=== PATIENT | female | born 1965 | race Caucasian/White ===

== ENCOUNTER → 2016-09-21 | Outpatient (CLI) | payer OTHER ==
[~2016-09-21] MED LIST: ACT30 PO; ASPCH81X PO; CYAN100020 PO; GLIP-199 PO; INSUINJ SC; LISI-461 PO; METF-384 PO; MULT-506 PO; SIMV80TA2 PO
--- NOTE | 2016-09-21 16:37 | MAMMOGRAPHY REPORT ---
BILATERAL DIGITAL SCREENING MAMMOGRAM TOMOSYNTHESIS WITH CAD: 09/21/2016 CLINICAL HISTORY: Routine screening. Patient has no complaints. TECHNIQUE: Breast tomosynthesis in addition to standard 2D mammography was performed. Current study was also evaluated with a Computer Aided Detection (CAD) system. COMPARISON: Comparison is made to exams dated: 09/18/2015 mammogram, 09/13/2014 mammogram, 09/17/2013 mammogram, 09/11/2013 mammogram, 09/14/2011 mammogram, and 08/27/2011 mammogram - [facility]. BREAST COMPOSITION: There are scattered areas of fibroglandular density in both breasts. FINDINGS: There are stable scattered and grouped benign-appearing round microcalcifications in the b reasts. No suspicious mass, architectural distortion or cluster of suspicious microcalcifications i s seen. IMPRESSION: ACR BI-RADS CATEGORY 1: NEGATIVE There is no mammographic evidence of malignancy. A 1 year screening mammogram is recommended. The p atient will receive written notification of the results. Approximately 10% of breast cancers are not detected with mammography. A negative mammographic repor t should not delay biopsy if a clinically suggestive mass is present. Vickie Dempsey M.D. ay/:09/21/2016 15:56:29 Swiss Machinist: Rosio Guy, [facility] letter sent: Normal 1/2 BI-RADS Code: ACR BI-RADS Category 1: Negative
== END | disposition home or self-care (01) ==
LOC: C.MAMM 07:09
PROVIDERS: ATTEND Obstetrics & Gynecology
DX: Z12.31 Encounter for screening mammogram for malignant neoplasm of breast (principal)

== ENCOUNTER → 2016-10-22 | Outpatient (CLI) | payer OTHER | END | disposition home or self-care (01) | LOC: C.PAPS 15:39 | PROVIDERS: ATTEND Obstetrics & Gynecology | DX: Z01.419 Encounter for gynecological examination (general) (routine) without abnormal findings (principal) ==

== ENCOUNTER → 2017-07-01 | Outpatient (CLI) | payer OTHER ==
[2017-07-01 10:56] LABS: ALT/SGPT 49 U/L (12-78); AST/SGOT 20 U/L (15-37); BLOOD UREA NITROGEN 17 mg/dl (7-18); BUN/CREATININE RATIO 24.8 (10-20); CALCIUM 9.3 mg/dl (8.5-10.1); CARBON DIOXIDE 27 mmol/L (21-32); CHLORIDE 105 mmol/L (98-107); CHOLESTEROL 168 mg/dl (0-200); CREATININE 0.67 mg/dl (0.60-1.20); GLUCOSE 75 mg/dl (70-99); POTASSIUM 3.7 mmol/L (3.5-5.1); SODIUM 139 mmol/L (136-145)
[2017-07-01 11:06] LABS: ALKALINE PHOSPHATASE 85 U/L (45-117); CHOLESTEROL/HDL RATIO 2.5; HDL CHOLESTEROL 66 mg/dl; LDL CHOLESTEROL CALCULATED 80 mg/dl; THYROID STIMULATING HORMONE 0.935 uIu/ml (0.300-4.500); TRIGLYCERIDES 112 mg/dl (0-150); VERY LOW DENSITY LIPOPROT CALC 22 mg/dl
[2017-07-01 11:18] LABS: RATIO 11.5 mcg/mg (0-30.0)
[2017-07-01 11:23] LABS: ESTIMATED AVERAGE GLUCOSE 197 mg/dl; HA1C FLAG Normal (Normal)
== END | disposition home or self-care (01) ==
LOC: C.LAB1850 09:45
PROVIDERS: ATTEND Internal Medicine Endocrinology, Diabetes & Metabolism
DX: E11.9 Type 2 diabetes mellitus without complications (principal)

== ENCOUNTER → 2017-09-09 | Outpatient (CLI) | payer OTHER ==
[2017-09-09 12:58] LABS: HEMOGLOBIN A1C 7.4 % (4.5-5.6)
== END | disposition home or self-care (01) ==
LOC: C.LAB1850 10:25
PROVIDERS: ATTEND Internal Medicine Endocrinology, Diabetes & Metabolism
DX: E55.9 Vitamin D deficiency, unspecified (principal); E11.9 Type 2 diabetes mellitus without complications

== ENCOUNTER → 2017-11-04 | Outpatient (CLI) | payer OTHER | END | disposition home or self-care (01) | LOC: C.PAPS 13:52 | PROVIDERS: ATTEND Obstetrics & Gynecology | DX: Z01.419 Encounter for gynecological examination (general) (routine) without abnormal findings (principal) ==

== ENCOUNTER → 2017-12-23 | Outpatient (CLI) | payer OTHER ==
--- NOTE | 2017-12-23 14:20 | MAMMOGRAPHY REPORT ---
BILATERAL DIGITAL SCREENING MAMMOGRAM TOMOSYNTHESIS WITH CAD: 12/23/2017 CLINICAL HISTORY: Routine screening. Patient has no complaints. TECHNIQUE: Breast tomosynthesis in addition to standard 2D mammography was performed. Current study was also evaluated with a Computer Aided Detection (CAD) system. COMPARISON: Comparison is made to exams dated: 09/21/2016 mammogram, 09/18/2015 mammogram, 09/13/2014 m ammogram, 09/17/2013 mammogram, 09/11/2013 mammogram, and 08/31/2012 mammogram - [facility]. BREAST COMPOSITION: There are scattered areas of fibroglandular density in both breasts. FINDINGS: No suspicious masses, calcifications, or areas of architectural distortion are noted in ei ther breast. There has been no significant interval change compared to prior exams. Scattered bilater al benign-appearing calcifications are not significantly changed. IMPRESSION: ACR BI-RADS CATEGORY 2: BENIGN There is no mammographic evidence of malignancy. A 1 year screening mammogram is recommended. The pa tient will receive written notification of the results. Approximately 10% of breast cancers are not detected with mammography. A negative mammographic report should not delay biopsy if a clinically suggestive mass is present. Paula Bowen M.D. /:12/23/2017 07:56:54 Ribbon Lap Machine Tender: Delilah ROMAN)(Meghna)(AGUILA), [facility] letter sent: Normal 1/2 BI-RADS Code: ACR BI-RADS Category 2: Benign
== END | disposition home or self-care (01) ==
LOC: C.MAMM 07:32
PROVIDERS: ATTEND Obstetrics & Gynecology
DX: Z12.31 Encounter for screening mammogram for malignant neoplasm of breast (principal)

== ENCOUNTER 2023-06-08 11:35 | Inpatient (IN) ==
[2023-06-08] MEDS ORDERED: SODIUM CHLORIDE 0.9% 1,000 ML IV ONE (13:01)
--- NOTE | 2023-06-08 13:01 | Emergency Department Note ---
Impression & Plan YING (acute kidney injury), UTI (urinary tract infection) ED Provider Note Provider: Junaid Gordon MD DATE OF SERVICE: 06/08/2023 CHIEF COMPLAINT: Abnormal blood HISTORY OF PRESENT ILLNESS: Patient is a 58-year-old female history of type 2 diabetes, hypertension, and obesity presenting here today referred due to abnormal outpatient blood work. Went for yearly checkup today with a doctor. States has been on Ozempic for several years with increased dose in December. Has skipped the last 2 weeks of administration as she is been experiencing her last several months nausea. Particular the last 4 weeks worsening nausea and episodes of vomiting. States she only has a couple bites and then feels full. Has had some nonbloody diarrhea. Denies significant abdominal pain at this time or chest pain. Endorses some fatigue the last several weeks. Denies any swelling. Denies a history of kidney issues but outpatient blood work here showed a new creatinine of 7. Patient states has not been drinking amazingly as again this is effective along with her appetite. PAST MEDICAL HISTORY: As noted above MEDICATIONS: Reviewed home medications SOCIAL HISTORY: Non-smoker PHYSICAL EXAM: GENERAL: alert and oriented in no acute distress on stretcher Head: normocephalic and atraumatic EYES: No injection, discharge or icterus. NECK: Trachea midline. Supple. ENT: Mucous membranes pink and moist. LUNGS: Airway patent. No retractions or tachycardia HEART: Regular rate and rhythm. ABDOMEN: Soft and non-tender, without guarding or rebound. SKIN: Acyanotic, warm, dry, without rashes EXTREMITIES: Without swelling, tenderness or deformity NEUROLOGICAL: No focal deficits. No aphasia. No facial droop or slurred speech. Ambulatory. EK bpm normal sinus rhythm. No PVC or PAC. QTc 474. No acute ST segment elevation noted CONTINUOUS CARDIAC MONITORING: was ordered and showed a heart rate of 80s-90s bpm in normal sinus rhythm Patient's laboratory studies and imaging reviewed. Differential includes Renal colic, UTI, infections, renal mass, acute kidney injury, CKD, medication reaction, pancreatitis, as well as other pathologies. IMPRESSION/MEDICAL DECISION MAKING: Patient a bit fatigued but generally well-appearing without signs of fluid overload. Outpatient blood work incidentally noted a creatinine of 7 today. Sent in for further evaluation. Decreased intake hospital related to Ozempic. Denies significant abdominal pain at this time. Denies any hematuria and has been making urine by her report. Does not appear fluid overloaded. Repeat blood work was sent here to ensure this was not lab work in error. EKG was completed. We will send for renal ultrasound to look for any obstructive signs or other indicators that could explain why her renal function is so much worse. We will gently give some IV fluid hydration but while her creatinine is 7 her BU N is only elevated 61 not necessarily pointing to a prerenal etiology. Patient mild to moderately hypertensive here. Urinalysis returns with protein, evidence of infection with epithelial cells, bacteria, white blood cells, esterase as well as granular casts. White blood cell count hemoglobin normal. Platelets normal. Creatinine confirms on recheck here 7.2. BUN 62 with an anion gap of 19 and a bicarb of 23. Normal sodium and potassium. Magnesium low at 1.1. Lipase insignificantly elevated at 107. No transaminitis or elevated bilirubin noted. Ultrasound per radiology without evidence of obstruction or hydronephrosis Discussed with nephrology on-call Dr. Jimenez given these findings. Patient has been on lisinopril.. He recommended that we bring the patient in for work-up. Hospitalist was contacted. Patient and family updated and agreeable.. Given abnormal urinalysis empirically covered with ceftriaxone. DIAGNOSIS: Acute kidney injury, acute UTI DISPOSITION: Hospitalist will evaluate Patient was agreeable with this plan. Past Med/Surg History Medical History (Updated 06/08/23 @ 16:24 by Junaid Gordon M.D.) Background diabetic retinopathy associated with type 2 diabetes mellitus Diverticulosis of colon Dyslipidemia Hypertension Obesity Postmenopausal Type 2 diabetes mellitus with complications Type 2 diabetes mellitus, with long-term current use of insulin Urinary incontinence Vitamin D deficiency Surgical History H/O section S/P lumpectomy, right breast S/P wisdom tooth extraction Family History Father Pure hypercholesterolemia FH: cholecystectomy Mother Pure hypercholesterolemia Diabetes Sister Epilepsy Grandfather (Maternal) Colorectal cancer Grandmother (Paternal) Breast cancer Denies family history of Ovarian cancer Prostate cancer Myocardial infarction Social History (Updated 06/08/23 @ 08:42 by LISSET Hwang) Smoking Status: Never smoker Second Hand Exposure: No; Do You Dip or Chew Tobacco: No; Hx Alcohol Use: No Hx Substance Use: No Preferred Language: Kazakh Communication Ability: Effective Visual Impairment: No Limitations Hearing Ability: Normal Grain Trader Required: No marital status: Current Living Situation: Spouse current occupational status: employed current occupation: book keeper How many Children do You have: 2 Feels Safe at Home: Yes Childhood Exposure to Second-Hand Smoke: No Diet: regular Dental Care, Regularly: Yes Physical Activity Frequency: 1-2 Times per Week Seatbelt Use: always Sunscreen Use: Yes Assistive Devices: Glasses Allergies Allergies Allergy/AdvReac Type Severity Reaction Status Date / Time No Known Drug Allergies Allergy Unknown . Verified 06/08/23 08:38 apple AdvReac Unknown Swelling Verified 06/08/23 14:07 of Lip/Tongue/Throat mejia AdvReac Unknown Swelling Verified 06/08/23 14:07 of Lip/Tongue/Throat Home Meds Home Medications Medication Instructions Recorded Confirmed cholecalciferol (vitamin D3) 50 2,000 unit PO QAM 11/13/19 06/08/23 mcg (2,000 unit) capsule multivitamin 1 tab PO QAM 11/13/19 06/08/23 pen needle, diabetic 32 gauge x #50 ea 11/13/19 06/08/23 1/" (BD Ultra-Fine Micro Pen Needle) atorvastatin 80 mg tablet 80 mg PO HS 06/08/23 06/08/23 glipizide 10 mg tablet 0 mg PO BID 06/08/23 06/08/23 lisinopril 20 mg tablet 20 mg PO QAM 06/08/23 06/08/23 metformin 1,000 mg tablet 1,000 mg PO BID 06/08/23 06/08/23 pioglitazone 45 mg tablet 45 mg PO QAM 06/08/23 06/08/23 Previous Rx's Medication Instructions Recorded insulin NPH isoph U-100 human 100 5 unit (0.05 mL) subcut HS #45 mL 12/14/22 unit/mL (3 mL) subcutaneous pen (Novolin N FlexPen) semaglutide 2 mg/dose (8 mg/3 mL) 2 mg (0.75 mL) subcut WK 30 days 01/18/23 subcutaneous pen injector #9 mL Results & Data (ED) Vital Signs Vital Signs - 24 hr 06/08/23 11:54 06/08/23 13:00 06/08/23 15:00 Temperature 36.7 C Temperature Source Temporal Artery Scan Pulse Rate 106 H Pulse Rate [Apical] 92 H 82 Respiratory Rate 18 15 18 Respiratory Effort / Characteristics Non-Labored Spontaneous Non-Labored Respiratory Depth Normal Normal Normal Respiratory Pattern Regular Regular Blood Pressure 144/84 H Blood Pressure [Right Arm] 141/74 H 115/77 Blood Pressure Mean 104 Blood Pressure Mean [Right Arm] 96 89 Blood Pressure Position Sitting Blood Pressure Position [Right Arm] Semi-fowlers Sitting Pulse Oximetry 99 99 99 Oxygen Delivery Method Room Air Room Air Room Air Sepsis Recent Fever Within 48 Hours No Sepsis New/Unexplained Change in Mental Status No Sepsis Action Taken by Nursing No Action Required Laboratory Data 06/08/23 12:41 06/08/23 12:41 Lab Results 06/08/23 06/08/23 06/08/23 Range/Units 12:19 12:41 12:41 WBC 8.02 (4.8-10.8) K/ul RBC 4.10 L (4.20-5.40) M/uL Hgb 12.3 (12.0-16.0) g/dl Hct 36.5 L (37.0-47.0) % MCV 89.0 (80.0-100.0) fL MCH 30.0 (25.0-34.0) pg MCHC 33.7 (32.0-36.0) g/dL RDW Std Deviation 42.9 (36.4-46.3) fL RDW Coeff of Kaden 13.2 (11.5-14.5) % Plt Count 208 (130-400) K/uL MPV 9.7 (9.4-12.4) fL Immature Gran % (Auto) 0.7 % Neut % (Auto) 74.6 % Lymph % (Auto) 19.0 % [place] % (Auto) 5.1 % Eos % (Auto) 0.2 % Baso % (Auto) 0.4 % Neut # (Auto) 5.98 (1.40-6.50) K/uL Lymph # (Auto) 1.52 (1.20-3.40) K/uL [place] # (Auto) 0.41 (0.11-0.59) K/uL Eos # (Auto) 0.02 (0.00-0.50) K/uL Baso # (Auto) 0.03 (0.00-0.20) K/uL Immature Gran # (Auto) 0.06 (0.01-0.20) K/uL ESR (0-30) mm/hr PT 10.3 (9.0-12.0) Seconds INR 0.9 (0.9-1.1) Sodium (136-145) mmol/L Potassium (3.5-5.1) mmol/L Chloride (98-107) mmol/L Carbon Dioxide (21-32) mmol/L Anion Gap (3-11) BUN (6-23) mg/dl Creatinine (0.6-1.2) mg/dl Est Cr Clr Drug Dosing ml/min Est GFR ( Amer) ml/min Est GFR (Non-Af Amer) ml/min BUN/Creatinine Ratio (10-20) Glucose (70-99(Fasting)) mg/dl Lactate (0.4-2.0) mmol/L Calcium (8.6-10.3) mg/dl Phosphorus (2.5-4.9) mg/dl Magnesium (1.7-2.4) mg/dl Total Bilirubin (0.2-1.0) mg/dl AST (13-39) U/L ALT (7-52) U/L Alkaline Phosphatase (34-104) U/L Troponin I High Sens (0-14) pg/ml C-Reactive Protein Total Protein (6.0-8.3) gm/dl Albumin (3.4-5.0) gm/dl Globulin (2.5-4.0) gm/dl Albumin/Globulin Ratio (0.9-2) Lipase (11-82) U/L Procalcitonin 0.18 (0-0.5) ng/ml TSH (0.300-4.500) uIu/ml Urine Color Urine Appearance (Clear) Urine pH (4.5-7.5) Ur Specific Clements (1.000-1.030) Urine Protein (Negative) Urine Glucose (UA) (Negative) Urine Ketones (Negative) Urine Blood (Negative) Urine Nitrite (Negative) Urine Bilirubin (Negative) Urine Urobilinogen (Negative) Ur Leukocyte Esterase (Negative) Urine WBC (Auto) (0-5) /hpf Urine RBC (Auto) (0-4) /hpf U Hyaline Cast (Auto) (0-5) /lpf U Epithel Cells (Auto) (0-5) /lpf Urine Bacteria (Auto) (Negative) Granular Casts (0) /lpf Urine Yeast SARS-CoV-2, RNA, NAAT (NEGATIVE) 06/08/23 06/08/23 06/08/23 Range/Units 12:41 12:41 12:47 WBC (4.8-10.8) K/ul RBC (4.20-5.40) M/uL Hgb (12.0-16.0) g/dl Hct (37.0-47.0) % MCV (80.0-100.0) fL MCH (25.0-34.0) pg MCHC (32.0-36.0) g/dL RDW Std Deviation (36.4-46.3) fL RDW Coeff of Kaden (11.5-14.5) % Plt Count (130-400) K/uL MPV (9.4-12.4) fL Immature Gran % (Auto) % Neut % (Auto) % Lymph % (Auto) % [place] % (Auto) % Eos % (Auto) % Baso % (Auto) % Neut # (Auto) (1.40-6.50) K/uL Lymph # (Auto) (1.20-3.40) K/uL [place] # (Auto) (0.11-0.59) K/uL Eos # (Auto) (0.00-0.50) K/uL Baso # (Auto) (0.00-0.20) K/uL Immature Gran # (Auto) (0.01-0.20) K/uL ESR 27 (0-30) mm/hr PT (9.0-12.0) Seconds INR (0.9-1.1) Sodium 139 (136-145) mmol/L Potassium 3.5 (3.5-5.1) mmol/L Chloride 97 L (98-107) mmol/L Carbon Dioxide 23 (21-32) mmol/L Anion Gap 19 H (3-11) BUN 62 H (6-23) mg/dl Creatinine 7.24 H* (0.6-1.2) mg/dl Est Cr Clr Drug Dosing 7.4 ml/min Est GFR ( Amer) 6.5 ml/min Est GFR (Non-Af Amer) 5.6 ml/min BUN/Creatinine Ratio 8.6 L (10-20) Glucose 163 H (70-99(Fasting)) mg/dl Lactate (0.4-2.0) mmol/L Calcium 8.8 (8.6-10.3) mg/dl Phosphorus 4.9 (2.5-4.9) mg/dl Magnesium 1.1 L (1.7-2.4) mg/dl Total Bilirubin 0.7 (0.2-1.0) mg/dl AST 17 (13-39) U/L ALT 13 (7-52) U/L Alkaline Phosphatase 52 (34-104) U/L Troponin I High Sens 3.9 (0-14) pg/ml C-Reactive Protein Cancelled Total Protein 7.4 (6.0-8.3) gm/dl Albumin 4.4 (3.4-5.0) gm/dl Globulin 3.0 (2.5-4.0) gm/dl Albumin/Globulin Ratio 1.5 (0.9-2) Lipase 107 H (11-82) U/L Procalcitonin (0-0.5) ng/ml TSH 0.701 (0.300-4.500) uIu/ml Urine Color Yellow Urine Appearance Turbid A (Clear) Urine pH 5.0 (4.5-7.5) Ur Specific Clements 1.019 (1.000-1.030) Urine Protein 3+ H (Negative) Urine Glucose (UA) Negative (Negative) Urine Ketones Trace H (Negative) Urine Blood 2+ H (Negative) Urine Nitrite Negative (Negative) Urine Bilirubin Negative (Negative) Urine Urobilinogen Negative (Negative) Ur Leukocyte Esterase 3+ H (Negative) Urine WBC (Auto) >30 H (0-5) /hpf Urine RBC (Auto) 5-10 H (0-4) /hpf U Hyaline Cast (Auto) 5-10 H (0-5) /lpf U Epithel Cells (Auto) >30 H (0-5) /lpf Urine Bacteria (Auto) 4+ H (Negative) Granular Casts 5-10 H (0) /lpf Urine Yeast Not Reportable SARS-CoV-2, RNA, NAAT (NEGATIVE) 06/08/23 06/08/23 Range/Units 12:51 15:27 WBC (4.8-10.8) K/ul RBC (4.20-5.40) M/uL Hgb (12.0-16.0) g/dl Hct (37.0-47.0) % MCV (80.0-100.0) fL MCH (25.0-34.0) pg MCHC (32.0-36.0) g/dL RDW Std Deviation (36.4-46.3) fL RDW Coeff of Kaden (11.5-14.5) % Plt Count (130-400) K/uL MPV (9.4-12.4) fL Immature Gran % (Auto) % Neut % (Auto) % Lymph % (Auto) % [place] % (Auto) % Eos % (Auto) % Baso % (Auto) % Neut # (Auto) (1.40-6.50) K/uL Lymph # (Auto) (1.20-3.40) K/uL [place] # (Auto) (0.11-0.59) K/uL Eos # (Auto) (0.00-0.50) K/uL Baso # (Auto) (0.00-0.20) K/uL Immature Gran # (Auto) (0.01-0.20) K/uL ESR (0-30) mm/hr PT (9.0-12.0) Seconds INR (0.9-1.1) Sodium (136-145) mmol/L Potassium (3.5-5.1) mmol/L Chloride (98-107) mmol/L Carbon Dioxide (21-32) mmol/L Anion Gap (3-11) BUN (6-23) mg/dl Creatinine (0.6-1.2) mg/dl Est Cr Clr Drug Dosing ml/min Est GFR ( Amer) ml/min Est GFR (Non-Af Amer) ml/min BUN/Creatinine Ratio (10-20) Glucose (70-99(Fasting)) mg/dl Lactate 3.1 H* (0.4-2.0) mmol/L Calcium (8.6-10.3) mg/dl Phosphorus (2.5-4.9) mg/dl Magnesium (1.7-2.4) mg/dl Total Bilirubin (0.2-1.0) mg/dl AST (13-39) U/L ALT (7-52) U/L Alkaline Phosphatase (34-104) U/L Troponin I High Sens (0-14) pg/ml C-Reactive Protein Total Protein (6.0-8.3) gm/dl Albumin (3.4-5.0) gm/dl Globulin (2.5-4.0) gm/dl Albumin/Globulin Ratio (0.9-2) Lipase (11-82) U/L Procalcitonin (0-0.5) ng/ml TSH (0.300-4.500) uIu/ml Urine Color Urine Appearance (Clear) Urine pH (4.5-7.5) Ur Specific Clements (1.000-1.030) Urine Protein (Negative) Urine Glucose (UA) (Negative) Urine Ketones (Negative) Urine Blood (Negative) Urine Nitrite (Negative) Urine Bilirubin (Negative) Urine Urobilinogen (Negative) Ur Leukocyte Esterase (Negative) Urine WBC (Auto) (0-5) /hpf Urine RBC (Auto) (0-4) /hpf U Hyaline Cast (Auto) (0-5) /lpf U Epithel Cells (Auto) (0-5) /lpf Urine Bacteria (Auto) (Negative) Granular Casts (0) /lpf Urine Yeast SARS-CoV-2, RNA, NAAT NEGATIVE (NEGATIVE) Administered Medications Discontinued Medications Sodium Chloride (Nss) 1,000 mls @ 999 mls/hr IV .[id number] ONE Stop: 06/08/23 14:01 Last Infusion: 06/08/23 15:18 Dose: 0 mls/hr Documented By: Admin: 06/08/23 13:56 Dose: 999 mls/hr Documented By: ALEXEI Ceftriaxone Sodium (Rocephin) 2,000 mg in 50 mls @ 100 mls/hr IV NOW STA Stop: 06/08/23 14:24 Last Infusion: 06/08/23 14:57 Dose: 0 mls/hr Documented By: Admin: 06/08/23 14:17 Dose: 100 mls/hr Documented By: MMG Imaging Data Radiologist's Impression: Renal Ultrasound 06/08/23 11:45 US renal/blad retro comp CLINICAL HISTORY: new kidney dysfunction TECHNIQUE: Multiple sonographic real-time images of the kidneys and bladder were obtained. COMPARISON: None available at the time of this dictation. FINDINGS: The right kidney measures 10.8 cm in length, and the left kidney measures 11.6 cm in length. Mild perinephric fluid is seen bilaterally. The right kidney is normal in size, contour, cortical thickness, and echogenicity. No hydronephrosis is identified. No renal lesion is identified. The left kidney is normal in size, contour, cortical thickness and echogenicity. No hydronephrosis is identified. No renal lesion is identified. The bladder is partially distended. No large intraluminal mass is seen. IMPRESSION: Unremarkable examination and in particular no evidence of hydronephrosis. ACT 112: Negative or not required by law. Electronically signed by: Chetan Flynn M.D. 06/08/2023 1:45 PM Chest X-Ray 06/08/23 14:15 SINGLE VIEW CHEST CLINICAL HISTORY: Acute renal insufficiency. FINDINGS: An AP, portable, upright chest radiograph is obtained. No prior studies are available for comparison at the time of dictation. The cardiomediastinal silhouette is unremarkable noting atherosclerotic calcif ication of the thoracic aorta. The pulmonary vasculature is noncongestive.. The lungs and pleural spaces are clear. No pneumothorax is seen. The skeletal structures are osteopenic. The bony thorax is grossly intact. IMPRESSION: No active disease in the chest. ACT 112: Negative or not required by law. Electronically signed by: Larry Jimenez M.D. 06/08/2023 2:38 PM Abdomen/Pelvis CT 06/08/23 15:07 CT OF THE ABDOMEN AND PELVIS WITHOUT CONTRAST CLINICAL HISTORY: YING with recent weight loss COMPARISON STUDY: Renal ultrasound June 08, 2023. TECHNIQUE: Axial images of the abdomen and pelvis were obtained without IV c ontrast. Images were reviewed in the axial, sagittal, and coronal planes. Automated exposure control was utilized for the study. A dose lowering technique was utilized adhering to the principles of ALARA. FINDINGS: Lung bases are unremarkable. No pneumatosis, free air or portal venous gas is present. There is no hydronephrosis. No renal, ureteral or bladder calculi are present. Pelvic calcifications represent phleboliths. Evaluation of the remainder of the abdomen and pelvis is suboptimal on this unenhanced exam. Liver, spleen, adrenal glands and pancreas are unremarkable. There is no biliary or pancreatic ductal dilatation. There is no evidence for a bowel obstruction. No abdominal or pelvic lymphadenopathy is present. The appendix is normal. There is no ascites. No suspicious lesions are identified within the visualized skeletal structures. IMPRESSION: 1. No urinary calculi or hydronephrosis. 2. No acute process within the abdomen or pelvis on unenhanced exam. 3. No CT evidence for malignancy within the abdomen or pelvis on unenhanced exam. ACT 112: Negative or not required by law. Electronically signed by: Lj Roberts M.D. 06/08/2023 3:58 PM Discharge Plan Visit Data Chief Complaint: Abnormal Labs/Diagnostic Testing Stated Complaint: DOC REF,ABNORMAL LABS ED Provider: Junaid Gordon Discharge Problem: YING (acute kidney injury), UTI (urinary tract infection) Patient Disposition: Being Evaluated by Hospitalist Forms Stand Alone Forms: My [facility] Prescriptions Prescriptions: No Action semaglutide 2 mg/dose (8 mg/3 mL) pen injector 2 mg subcut WK 30 Days Qty: 9 3RF Hold Instructions: N/V, poor PO Rx Instructions: Tuesday Novolin N FlexPen 100 unit/mL (3 mL) insulin pen 5 unit SQ HS Qty: 45 1RF Rx Instructions: Pt states that she hasn't needed to use this since she started ozempic, but she still has it just in case multivitamin Tablet 1 tab PO QAM cholecalciferol (vitamin D3) 50 mcg (2,000 unit) capsule 2,000 unit PO QAM (DME) pen needle, diabetic [BD Ultra-Fine Micro Pen Needle] 32 gauge x 1/4" needle See Rx Instructions .ROUTE .MEDSUPPLY Qty: 50 Rx Instructions: As directed atorvastatin 80 mg tablet 80 mg PO HS lisinopril 20 mg tablet 20 mg PO QAM glipizide 10 mg tablet 0 mg PO BID Rx Instructions: 06/07/23 - 10mg by mouth twice daily. Starting 06/09/23 - Pt will begin taking 5mg by mouth twice daily pioglitazone 45 mg tablet 45 mg PO QAM metformin 1,000 mg tablet 1,000 mg PO BID Referrals Referrals: Sandra Herrera MD [Primary Care Provider] -
[2023-06-08 13:08] LABS: Appearance Urine Turbid (Clear); Bacteria Urine Automated 4+ (Negative); Bilirubin Urine Negative (Negative); Blood Urine 2+ (Negative); Color Urine Yellow; Epithelial Cell Urine Auto >30 /lpf (0-5); Glucose Urine UA Negative (Negative); Ketones Urine Trace (Negative); Leukocyte Esterase Urine 3+ (Negative); Nitrite Urine Negative (Negative); Protein Urine 3+ (Negative); Specific Gravity Urine 1.019 (1.000-1.030); Urobilinogen Urine Negative (Negative); WBC Urine Automated >30 /hpf (0-5)
[2023-06-08 13:25] LABS: Basophils # (auto) 0.03 K/uL (0.00-0.20); Basophils % (auto) 0.4 %; Eosinophils # (auto) 0.02 K/uL (0.00-0.50); Eosinophils % (auto) 0.2 %; Hematocrit (blood only) 36.5 % (37.0-47.0); Hemoglobin 12.3 g/dl (12.0-16.0); Immature Granulocytes # (auto) 0.06 K/uL (0.01-0.20); Immature Granulocytes % (auto) 0.7 %; Lymphocytes # (auto) 1.52 K/uL (1.20-3.40); Mean Corpuscular Hgb Conc 33.7 g/dL (32.0-36.0); Mean Platelet Volume 9.7 fL (9.4-12.4); Monocytes # (auto) 0.41 K/uL (0.11-0.59); Monocytes % (auto) 5.1 %; Neutrophils # (auto) 5.98 K/uL (1.40-6.50); Neutrophils % (auto) 74.6 %; Platelet Count 208 K/uL (130-400); RDW Coefficient of Variation 13.2 % (11.5-14.5); RDW Standard Deviation 42.9 fL (36.4-46.3); White Blood Count 8.02 K/ul (4.8-10.8)
[2023-06-08 13:35] LABS: Albumin Globulin Ratio 1.5 (0.9-2); Albumin Level 4.4 gm/dl (3.4-5.0); BUN Creatinine Ratio 8.6 (10-20); Bilirubin,Total 0.7 mg/dl (0.2-1.0); Calcium 8.8 mg/dl (8.6-10.3); Creatinine Clr Calc Pharmacy 7.4 ml/min; Est GFR (African American) 6.5 ml/min; Est GFR (Non-African American) 5.6 ml/min; Magnesium 1.1 mg/dl (1.7-2.4); Phosphorus 4.9 mg/dl (2.5-4.9); Potassium 3.5 mmol/L (3.5-5.1); Total Protein 7.4 gm/dl (6.0-8.3)
[2023-06-08 13:37] LABS: Troponin I High Sensitivity 3.9 pg/ml (0-14)
[2023-06-08 13:38] LABS: INR 0.9 (0.9-1.1); Prothrombin Time 10.3 Seconds (9.0-12.0)
--- NOTE | 2023-06-08 13:47 | Ultrasound Report ---
US renal/blad retro comp CLINICAL HISTORY: new kidney dysfunction TECHNIQUE: Multiple sonographic real-time images of the kidneys and bladder were obtained. COMPARISON: None available at the time of this dictation. FINDINGS: The right kidney measures 10.8 cm in length, and the left kidney measures 11.6 cm in length. Mild per inephric fluid is seen bilaterally. The right kidney is normal in size, contour, cortical thickness, and echogenicity. No hydronephrosis is identified. No renal lesion is identified. The left kidney is normal in size, contour, cortical thickness and echogenicity. No hydronephrosis i s identified. No renal lesion is identified. The bladder is partially distended. No large intraluminal mass is seen. IMPRESSION: Unremarkable examination and in particular no evidence of hydronephrosis. ACT 112: Negative or not required by law. Electronically signed by: Chetan Flynn M.D. 06/08/2023 1:45 PM
[2023-06-08 13:49] LABS: Thyroid Stimulating Hormone 0.701 uIu/ml (0.300-4.500)
[2023-06-08] MEDS ORDERED: cefTRIAXone SODIUM 2,000 MG/50 ML BAG IV STA (13:55)
--- NOTE | 2023-06-08 14:23 | History & Physical Report ---
Date of Service June 08, 2023 Assessment & Plan (1) YING (acute kidney injury): Plan: Cr 7.1, BUN 61, eGFR 5.6 on arrival Last renal panel in December 2022 showed Cr 0.69, BUN 17, eGFR 95.3 Clinically, loss of appetite, decreased urine production, and intermittent N/V/D x 3 weeks Patient increased Ozempic from 1-->2mg/dose in December 2022, which she believes has been contributing to her decreased appetite / nausea Per patient, no recent NSAID/antibiotic use Weight loss 85.8-->63.9kg since 05/2020 CT abdomen/pelvis revealed "no urinary calculi or hydronephrosis", and no evidence of "malignancy within the abdomen or pelvis" Elevated anion gap at 19 Elevated lactic acid at 3.1 PTH intact WNL at 83.1 (less suggestive of chronic disease) Tox screen pending Salicylate level pending Protein/creatinine ratio pending Strict I&O monitoring Hold lisinopril Avoid nephrotoxic agents Nephrology consulted, appreciate their guidance Renal diet as tolerated A.m. CBC, BMP (2) UTI (urinary tract infection): Plan: UA concerning for infection on admission - Symptom = intermittent dysuria Started on Rocephin in the ED Continue Rocephin 2g daily (3) Type 2 diabetes mellitus, with long-term current use of insulin: Plan: Glucose 165 on arrival Last A1c 6.6% on 06/08/2023 NPH insulin decreased from 10-->5 units in November 2022 to avoid nighttime hypoglycemic readings Hold all p.o. diabetic meds while inpatient SSI; Lantus 5 units twice daily, with target goal 110 to 150 mg/dL, correction factor 50 Type II diabetic diet Adjust regimen as needed (4) Hypertension: Plan: BP 116/64 on arrival Hold lisinopril in the setting of YING (5) Hypomagnesemia: Plan: Mag 1.1 on arrival 2 bags of magnesium sulfate given in the ED A.m. mag to recheck (6) High anion gap metabolic acidosis: (7) Metabolic alkalosis: [facility] Full code T2DM, renal diet as tolerated VTE PPx: Heparin 5000u b.i.d. History of Present Illness Primary Care Provider: Sandra Herrera MD Marleny is a 58-year-old female with PMH of T2DM, HTN, vitamin D deficiency, and dyslipidemia. She presents at the behest of her PCP following outpatient lab work that showed an acute decline in kidney function. Creatinine at 7.1, BUN 62, and eGFR 5.6ml/min on arrival. Patient denies any prior renal history. She further denies any pain at present. She notes decreased urinary output over the past 3 weeks, as well as nausea, intermittent vomiting, and intermittent diarrhea, which she attributes to her Ozempic. Patient says she has not been eating or drinking much over the last several weeks, and that even the thought of food makes her nauseous. Patient increased her Ozempic in December 2022 from 1 --> 2 mg/dose; she reports that she has been on it for the past couple years, and has slowly increased from 0.25 --> 2 mg/dose. Her PCP told her to stop taking Ozempic 3 weeks ago when symptoms started. No other changes in medication. Patient denies recent NSAID or antibiotic use over the past few months. No recent infections. No recent surgeries/hospitalizations. No hx of GI/ surgeries aside from 36y ago. No PMH of kidney stones. Recent weight loss on Ozempic of 5kg since December 2022; also, since 05/2020, wgt loss of 85.8kg --> 63.9kg. Patient denies alcohol, tobacco, and recreational drug use. Patient denies physical trauma to the abdomen, pelvis, or back. She took all of her regular morning medications. Vitals stable on arrival. ED course: NSS 1000 mL, Rocephin 2000 mg ROS: Patient endorses recent weight loss, intermittent N/V/D, intermittent burning with urination, and urinary urgency. Patient denies fever, chills, sweats, CP, SOB, abdominal pain, LBP, dysuria, blood in the urine/stool, saddle anesthesia, or numbness/tingling/pain in the legs. Please see Dr. Glenroy Ramirez's attestation for additional changes to treatment plan Allergies Allergy/AdvReac Type Severity Reaction Status Date / Time No Known Drug Allergies Allergy Unknown . Verified 06/08/23 08:38 apple AdvReac Unknown Swelling Verified 06/08/23 14:07 of Lip/Tongue/Throat mejia AdvReac Unknown Swelling Verified 06/08/23 14:07 of Lip/Tongue/Throat Home Medications Medication Instructions Recorded Confirmed Type cholecalciferol (vitamin D3) 50 2,000 unit PO QAM 11/13/19 06/08/23 History mcg (2,000 unit) capsule multivitamin 1 tab PO QAM 11/13/19 06/08/23 History pen needle, diabetic 32 gauge x #50 ea 11/13/19 06/08/23 History 1/4" (BD Ultra-Fine Micro Pen Needle) insulin NPH isoph U-100 human 100 5 unit (0.05 mL) subcut HS #45 mL 12/14/22 06/08/23 Rx unit/mL (3 mL) subcutaneous pen (Novolin N FlexPen) semaglutide 2 mg/dose (8 mg/3 mL) 2 mg (0.75 mL) subcut WK 30 days 01/18/23 06/08/23 Rx subcutaneous pen injector #9 mL atorvastatin 80 mg tablet 80 mg PO HS 06/08/23 06/08/23 History glipizide 10 mg tablet 0 mg PO BID 06/08/23 06/08/23 History lisinopril 20 mg tablet 20 mg PO QAM 06/08/23 06/08/23 History metformin 1,000 mg tablet 1,000 mg PO BID 06/08/23 06/08/23 History pioglitazone 45 mg tablet 45 mg PO QAM 06/08/23 06/08/23 History Past Med/Surg History Medical History Background diabetic retinopathy associated with type 2 diabetes mellitus Diverticulosis of colon Dyslipidemia Hypertension Obesity Postmenopausal Type 2 diabetes mellitus with complications Type 2 diabetes mellitus, with long-term current use of insulin Urinary incontinence Vitamin D deficiency Surgical History H/O section S/P lumpectomy, right breast S/P wisdom tooth extraction Family History Father Pure hypercholesterolemia FH: cholecystectomy Mother Pure hypercholesterolemia Diabetes Sister Epilepsy Grandfather (Maternal) Colorectal cancer Grandmother (Paternal) Breast cancer Denies family history of Ovarian cancer Prostate cancer Myocardial infarction Social History Smoking Status: Never smoker Second Hand Exposure: No; Do You Dip or Chew Tobacco: No; Hx Alcohol Use: No Hx Substance Use: No Preferred Language: Slovak Communication Ability: Effective Visual Impairment: No Limitations Hearing Ability: Normal [place] Required: No Beliefs That Will Affect Care: None marital status: Current Living Situation: Spouse current occupational status: employed current occupation: book keeper How many Children do You have: 2 Feels Safe at Home: Yes Childhood Exposure to Second-Hand Smoke: No Diet: regular Dental Care, Regularly: Yes Physical Activity Frequency: 1-2 Times per Week Seatbelt Use: always Sunscreen Use: Yes Assistive Devices: Glasses Review of Systems Review of Systems: See HPI above Physical Exam Physical Exam: General: patient appears in no acute distress; anxious; appears stated age; well-nourished; cooperative HEENT: normocephalic, atraumatic; no scleral icterus; PERRLA w/ EOMs intact; moist mucus membrane; trachea midline; vision and hearing grossly intact Skin: warm, dry without signs of tenting; no cyanosis; no rashes, bruising, or lesions; no bruising on the abdomen or back Cardiac: RRR; no new murmurs noted Pulm: no acute respiratory distress; symmetrical chest expansion; clear breath sounds across all lung adkins without adventitious sounds Abdominal: Soft, nontender to palpation; BS present; no ascites; no distention; negative CVA tenderness MSK: no tics or fasciculations; no edema noted in the LEs b/l; pulses intact and symmetrical at radial, DP, and PT Neuro: A&Ox3; no tremors; no focal defects; sensation grossly intact in the upper and lower extremities; patient demonstrates the ability to wiggle toes Results & Data Results & Data Vital Signs (Past 12 Hours) Vital Signs Temp Pulse Pulse Resp BP BP Pulse Ox 06/08/23 13:00 92 H 15 141/74 H 99 06/08/23 11:54 36.7 C 106 H 18 144/84 H 99 O2 Del Method 06/08/23 13:00 Room Air 06/08/23 11:54 Room Air Laboratory Results Abnormal lab results 06/08/23 06/08/23 06/08/23 Range/Units 12:41 12:41 12:47 RBC 4.10 L (4.20-5.40) M/uL Hct 36.5 L (37.0-47.0) % Chloride 97 L (98-107) mmol/L Anion Gap 19 H (3-11) BUN 62 H (6-23) mg/dl Creatinine 7.24 H* (0.6-1.2) mg/dl BUN/Creatinine Ratio 8.6 L (10-20) Glucose 163 H (70-99(Fasting)) mg/dl Magnesium 1.1 L (1.7-2.4) mg/dl Lipase 107 H (11-82) U/L Urine Appearance Turbid A (Clear) Urine Protein 3+ H (Negative) Urine Ketones Trace H (Negative) Urine Blood 2+ H (Negative) Ur Leukocyte Esterase 3+ H (Negative) Urine WBC (Auto) >30 H (0-5) /hpf Urine RBC (Auto) 5-10 H (0-4) /hpf U Hyaline Cast (Auto) 5-10 H (0-5) /lpf U Epithel Cells (Auto) >30 H (0-5) /lpf Urine Bacteria (Auto) 4+ H (Negative) Granular Casts 5-10 H (0) /lpf Diagnostic Findings Renal Ultrasound 06/08/23 11:45 US renal/blad retro comp CLINICAL HISTORY: new kidney dysfunction TECHNIQUE: Multiple sonographic real-time images of the kidneys and bladder were obtained. COMPARISON: None available at the time of this dictation. FINDINGS: The right kidney measures 10.8 cm in length, and the left kidney measures 11.6 cm in length. Mild perinephric fluid is seen bilaterally. The right kidney is normal in size, contour, cortical thickness, and echogenicity. No hydronephrosis is identified. No renal lesion is identified. The left kidney is normal in size, contour, cortical thickness and echogenicity. No hydronephrosis is identified. No renal lesion is identified. The bladder is partially distended. No large intraluminal mass is seen. IMPRESSION: Unremarkable examination and in particular no evidence of hydronephrosis. ACT 112: Negative or not required by law. Electronically signed by: Chetan Flynn M.D. 06/08/2023 1:45 PM Chest X-Ray 06/08/23 14:15 SINGLE VIEW CHEST CLINICAL HISTORY: Acute renal insufficiency. FINDINGS: An AP, portable, upright chest radiograph is obtained. No prior studies are available for comparison at the time of dictation. The cardiomediastinal silhouette is unremarkable noting atherosclerotic calcification of the thoracic aorta. The pulmonary vasculature is noncongestive.. The lungs and pleural spaces are clear. No pneumothorax is seen. The skeletal structures are osteopenic. The bony thorax is grossly intact. IMPRESSION: No active disease in the chest. ACT 112: Negative or not required by law. Electronically signed by: Larry Jimenez M.D. 06/08/2023 2:38 PM Abdomen/Pelvis CT 06/08/23 15:07 CT OF THE ABDOMEN AND PELVIS WITHOUT CONTRAST CLINICAL HISTORY: YING with recent weight loss COMPARISON STUDY: Renal ultrasound June 08, 2023. TECHNIQUE: Axial images of the abdomen and pelvis were obtained without IV contrast. Images were reviewed in the axial, sagittal, and coronal planes. Automated exposure control was utilized for the study. A dose lowering technique was utilized adhering to the principles of ALARA. FINDINGS: Lung bases are unremarkable. No pneumatosis, free air or portal venous gas is present. There is no hydronephrosis. No renal, ureteral or bladder calculi are present. Pelvic calcifications represent phleboliths. Evaluation of the remainder of the abdomen and pelvis is suboptimal on this unenhanced exam. Liver, spleen, adrenal glands and pancreas are unremarkable. There is no biliary or pancreatic ductal dilatation. There is no evidence for a bowel obstruction. No abdominal or pelvic lymphadenopathy is present. The appendix is normal. There is no ascites. No suspicious lesions are identified within the visualized skeletal structures. IMPRESSION: 1. No urinary calculi or hydronephrosis. 2. No acute process within the abdomen or pelvis on unenhanced exam. 3. No CT evidence for malignancy within the abdomen or pelvis on unenhanced exam. ACT 112: Negative or not required by law. Electronically signed by: Lj Roberts M.D. 06/08/2023 3:58 PM Code Status & VTE Plan Code Status Full code Supervising Physician Co-Signing Physician Notes I personally saw and examined the patient. I verified all carrera points and agree with Jose Cheng PA-C with the following exceptions and/or additions: 58 year old female presents to the ER due to elevated creatinine on outpatient labs. Reports 1 month of nausea, vomiting, diarrhea (1-2 times/week). Intermittent dysuria for the last 3 weeks. Significantly decreased urine output since the weekend. Eating and drinking little. No CVA tenderness. No fever/chills. Feels her nausea really started when Ozempic was increased back in December. Discontinued Ozempic 3 weeks ago. Denies NSAID use. O/E A&Ox3, no asterixis, HS RRR, no murmurs, no pedal edema, Chest CTAB, Abdo SNT, no CVA tenderness. A/P YING - Cr baseline 0.69, currently 7.1. Suspect ATN on basis of dehydration in setting of lisinopril use with possible infection tipping her over the edge. CT performed due to weight loss - no post obstructive cause seen. No masses concerning for cancerous cause. ESR/CRP/CELIO added for alternative causes such as vasculitis but no systemic symptoms suggestive of this. PTH WNL suggestive more of acute injury rather than chronic. Strict I&Os. Consult nephrology. UTI - patient does not meet sepsis criteria. Intermittent dysuria. Mixed anion gap acidosis with metabolic alkalosis - anion gap suspect mostly elevated from uremia but lactate also mildly elevated. Lactate improved with IV fluid bolus. Alcohol, salicylate WNL. Concurrent metabolic alkalosis suspect from contraction/vomiting/hypomagnesemia. Hypomagnesemia - suspect from diarrhea. Total Mg sulfate 4g IV. Repeat daily as will redistribute intracellularly even if replaced tomorrow. PG Care Time/CCT Total # of Minutes Spent Total Time Spent with Patient: Total time spent is greater than 50% in coordination of care (as documented) at patient's floor/unit and/or counseling patient: C[place] [address] INT INP/OBS CARE 3/75MIN Patient Type Established Medical Decision Making High Complexity Diagnoses YING (acute kidney injury) N17.9 UTI (urinary tract infection) N39.0 Type 2 diabetes mellitus, with long-term current use of insulin E11.9; Z79.4 Diabetes mellitus complication detail: with diabetic retinopathy Diabetes mellitus complication status: with ophthalmic complications Hypertension I10 Hypomagnesemia E83.42 High anion gap metabolic acidosis E87.29 Metabolic alkalosis E87.3 (3) Type 2 diabetes mellitus, with long-term current use of insulin Diabetes mellitus complication detail: with diabetic retinopathy Diabetes mellitus complication status: with ophthalmic complications
--- NOTE | 2023-06-08 14:40 | XRay Report ---
SINGLE VIEW CHEST CLINICAL HISTORY: Acute renal insufficiency. FINDINGS: An AP, portable, upright chest radiograph is obtained. No prior studies are available for c omparison at the time of dictation. The cardiomediastinal silhouette is unremarkable noting atheroscl erotic calcification of the thoracic aorta. The pulmonary vasculature is noncongestive.. The lungs an d pleural spaces are clear. No pneumothorax is seen. The skeletal structures are osteopenic. The bony thorax is grossly intact. IMPRESSION: No active disease in the chest. ACT 112: Negative or not required by law. Electronically signed by: Larry Jimenez M.D. 06/08/2023 2:38 PM
[2023-06-08] MEDS ORDERED: CARBOHYDRATES FOR HYPOGLYCEMIA PO PRN (15:56)
[2023-06-08] MEDS ORDERED: GLUCAGON FOR INJ 1 MG VIAL SQ PRN (15:56)
[2023-06-08] MEDS ORDERED: GLUCOSE 10 TAB/TUBE PO PRN (15:56)
[2023-06-08] MEDS ORDERED: DEXTROSE 50% 50 ML SYRINGE IV PRN (15:56)
[2023-06-08] MEDS ORDERED: GLUCOSE 40% GEL 15 GM TUBE PO PRN (15:56)
--- NOTE | 2023-06-08 16:00 | CT Scan Report ---
CT OF THE ABDOMEN AND PELVIS WITHOUT CONTRAST CLINICAL HISTORY: YING with recent weight loss COMPARISON STUDY: Renal ultrasound June 08, 2023. TECHNIQUE: Axial images of the abdomen and pelvis were obtained without IV contrast. Images were revi ewed in the axial, sagittal, and coronal planes. Automated exposure control was utilized for the darrius dy. A dose lowering technique was utilized adhering to the principles of ALARA. FINDINGS: Lung bases are unremarkable. No pneumatosis, free air or portal venous gas is present. Ther e is no hydronephrosis. No renal, ureteral or bladder calculi are present. Pelvic calcifications repr esent phleboliths. Evaluation of the remainder of the abdomen and pelvis is suboptimal on this unenha nced exam. Liver, spleen, adrenal glands and pancreas are unremarkable. There is no biliary or pancre atic ductal dilatation. There is no evidence for a bowel obstruction. No abdominal or pelvic lymphade nopathy is present. The appendix is normal. There is no ascites. No suspicious lesions are identified within the visualized skeletal structures. IMPRESSION: 1. No urinary calculi or hydronephrosis. 2. No acute process within the abdomen or pelvis on unenhanced exam. 3. No CT evidence for malignancy within the abdomen or pelvis on unenhanced exam. ACT 112: Negative or not required by law. Electronically signed by: Lj Roberts M.D. 06/08/2023 3:58 PM
[2023-06-08 16:36] LABS: Urine Potassium 42.9 mmol/L
--- NOTE | 2023-06-08 16:46 | Nephrology Consultation ---
Date of Consultation June 08, 2023 Assessment & Plan (1) YING (acute kidney injury): * Baseline Cr 0.7 01/11. No interval studies until 06/13 when Cr 7.1 * Renal US reveals structurally normal kidneys without stone or obstruction * Urine sediment reveals hematuria, pyruria, hyaline and granular casts * Urine culture has been ordered, results pending, empiric ceftriaxone started * Clinically suspect ATN due to dehydration in the setting of ACEi therapy, however, will need to remain vigilant for vasculitis given the urinary findings * Patient remains clinically volume contracted. Electrolyte balance is acceptable at this time. No acute indication for DISTRIBUTION ESTIMATOR today * Agree w/ stopping lisinopril and metformin * Recommend hydration w/ Normosol at 80 cc/hr once current infusion of saline is completed * Monitor PRP, UO * Will order ESR, CELIO, ANCA, C3/C4, antiGBM Ab, PLA2R ab, hep B/C * Briefly discussed the possibility of HD to serve as a bridge therapy if renal function worsens or patient develops significant electrolyte imbalance (2) Hypertension: * Patient admitted w/ relative hypotension * Stop Lisinopril due to YING (3) Type 2 diabetes mellitus, with long-term current use of insulin: * Stop semaglutide * Stop metformin History of Present Illness Reason for Consultation: YING History of Present Illness Mrs. Pathak is a 58 year old white female who is seen at the request of Dr. Gordon for evaluation of YING. Information for the HPI is obtained from direct patient interview and review of the EMR. HPI is summarized as follows: Mrs. Pathak has AODM, HTN, and hypercholesterolemia. She has been diabetic for 20 years and has documented retinopathy. Her diabetes has been managed w/ glipizide, pioglitazone, metformin and insulin. Approximately 15 months ago she was started on semaglutide. The dose has been actively titrated up. It was last increased 01/11. Mrs. Pathak reports abdominal fullness and poor appetite since increasing semaflutide to 2 mg SQ weekly. Over the last 3 weeks she has suffered progressive nausea and recurrent episodes of emesis. She has had difficulty keeping down liquids. Mrs. Pathak states that she remained on all of her medications including metformin and lisinopril. Today, Mrs. Pathak was seen by her PCP for a wellness visit. She c/o weakness and worsening nausea. Laboratory studies obtained following the OV revealed Cr 7.0. Mrs. Pathak was subsequently directed to the EMD for evaluation. Lisinopril and metformin have been stopped. IVF provided. Renal US - R 10.8 cm, L 11.6 cm. No hydronephrosis/stone/mass reported. Noncontrast abdominal CT - no urinary calculi or hydronephrosis, no acute process within the abdomen or pelvis. CXR was negative for pulmonary edema or pneumonia. COVID testing was negative. Mrs. Pathak currently denies fever, flank pain, gross hematuria, foamy urine, difficulty voiding. She denies alopecia, WELCH, seizures, oral ulcers, angina, dyspnea, hemoptysis, abdominal pain, melena/hematochezia, joint pain, skin rash, myalgias or other vasculitic symptoms. Mrs. Pathak denies the recent use of NSAIDS or herbal supplements. There is no FHx of CKD/ESKD. Allergies Allergy/AdvReac Type Severity Reaction Status Date / Time No Known Drug Allergies Allergy Unknown . Verified 06/08/23 08:38 apple AdvReac Unknown Swelling Verified 06/08/23 14:07 of Lip/Tongue/Throat mejia AdvReac Unknown Swelling Verified 06/08/23 14:07 of Lip/Tongue/Throat Home Medications Medication Instructions Recorded Confirmed Type cholecalciferol (vitamin D3) 50 2,000 unit PO QAM 11/13/19 06/08/23 History mcg (2,000 unit) capsule multivitamin 1 tab PO QAM 11/13/19 06/08/23 History pen needle, diabetic 32 gauge x #50 ea 11/13/19 06/08/23 History 1/4" (BD Ultra-Fine Micro Pen Needle) insulin NPH isoph U-100 human 100 5 unit (0.05 mL) subcut HS #45 mL 12/14/22 06/08/23 Rx unit/mL (3 mL) subcutaneous pen (Novolin N FlexPen) semaglutide 2 mg/dose (8 mg/3 mL) 2 mg (0.75 mL) subcut WK 30 days 01/18/23 06/08/23 Rx subcutaneous pen injector #9 mL atorvastatin 80 mg tablet 80 mg PO HS 06/08/23 06/08/23 History glipizide 10 mg tablet 0 mg PO BID 06/08/23 06/08/23 History lisinopril 20 mg tablet 20 mg PO QAM 06/08/23 06/08/23 History metformin 1,000 mg tablet 1,000 mg PO BID 06/08/23 06/08/23 History pioglitazone 45 mg tablet 45 mg PO QAM 06/08/23 06/08/23 History Patient History Medical History Background diabetic retinopathy associated with type 2 diabetes mellitus Diverticulosis of colon Dyslipidemia Hypertension Obesity Postmenopausal Type 2 diabetes mellitus with complications Type 2 diabetes mellitus, with long-term current use of insulin Urinary incontinence Vitamin D deficiency Surgical History H/O section S/P lumpectomy, right breast S/P wisdom tooth extraction Family History Father Pure hypercholesterolemia FH: cholecystectomy Mother Pure hypercholesterolemia Diabetes Sister Epilepsy Grandfather (Maternal) Colorectal cancer Grandmother (Paternal) Breast cancer Denies family history of Ovarian cancer Prostate cancer Myocardial infarction Social History Smoking Status: Never smoker Second Hand Exposure: No; Do You Dip or Chew Tobacco: No; Hx Alcohol Use: No Hx Substance Use: No Preferred Language: Belarusian Communication Ability: Effective Visual Impairment: No Limitations Hearing Ability: Normal Tapping Machine Operator Required: No marital status: Current Living Situation: Spouse current occupational status: employed current occupation: book keeper How many Children do You have: 2 Feels Safe at Home: Yes Childhood Exposure to Second-Hand Smoke: No Diet: regular Dental Care, Regularly: Yes Physical Activity Frequency: 1-2 Times per Week Seatbelt Use: always Sunscreen Use: Yes Assistive Devices: Glasses Review of Systems Constitutional: no fever Eyes: no problem reported Ear, Nose, Mouth, Throat: no problem reported Respiratory: no cough, no dyspnea and no hemoptysis Cardiovascular: no chest pain, no palpitations and no edema Gastrointestinal: + bloating, + early satiety, + nausea and + vomiting; no abdominal pain and no diarrhea/loose stools Genitourinary: no dysuria and no hematuria Musculoskeletal: no back pain, no joint pain, no myalgia and no muscle weakness Integumentary: no rash, no lesions, no skin ulcer, no unusual bruising and no alopecia Neurologic: no falls, no dizziness, no headache(s) and no confusion Physical Exam Constitutional: no acute distress Eyes: PERRL, conjunctivae normal, anicteric sclerae ENMT: external ear and nose normal, oropharynx normal Mouth: no oral mucosal abnormality Neck: trachea midline, no thyromegaly (no cervical lymphadenopathy) Respiratory: normal respiratory effort, lungs clear to auscultation Cardiovascular: Rate/Rhythm: regular rate and regular rhythm Gastrointestinal (Abdomen): Inspection/Auscultation: abdomen normal to inspection and normal bowel sounds; abdomen not distended Percussion/Palpation: abdomen soft; abdomen nontender and no guarding Musculoskeletal: Extremities: no joint enlargement, no cyanosis, no clubbing and no petechiae Skin: + turgor decreased; no rashes, no ulcers and no wound Neurologic: awake; not confused Speech / Cognition: normal speech and normal cognition Psychiatric: Affect: euthymic affect Results & Data Vital Signs (Past 12 Hours) Vital Signs Temp Pulse Pulse Resp BP BP Pulse Ox 06/08/23 15:00 82 18 115/77 99 06/08/23 13:00 92 H 15 141/74 H 99 06/08/23 11:54 36.7 C 106 H 18 144/84 H 99 O2 Del Method 06/08/23 15:00 Room Air 06/08/23 13:00 Room Air 06/08/23 11:54 Room Air Laboratory Results Laboratory Results WBC 8.02 K/ul (4.8-10.8) 06/08/23 12:41 RBC 4.10 M/uL (4.20-5.40) L 06/08/23 12:41 Hgb 12.3 g/dl (12.0-16.0) 06/08/23 12:41 Hct 36.5 % (37.0-47.0) L 06/08/23 12:41 MCV 89.0 fL (80.0-100.0) 06/08/23 12:41 MCH 30.0 pg (25.0-34.0) 06/08/23 12:41 MCHC 33.7 g/dL (32.0-36.0) 06/08/23 12:41 RDW Std Deviation 42.9 fL (36.4-46.3) 06/08/23 12:41 RDW Coeff of Kaden 13.2 % (11.5-14.5) 06/08/23 12:41 Plt Count 208 K/uL (130-400) 06/08/23 12:41 MPV 9.7 fL (9.4-12.4) 06/08/23 12:41 Immature Gran % (Auto) 0.7 % 06/08/23 12:41 Neut % (Auto) 74.6 % 06/08/23 12:41 Lymph % (Auto) 19.0 % 06/08/23 12:41 [place] % (Auto) 5.1 % 06/08/23 12:41 Eos % (Auto) 0.2 % 06/08/23 12:41 Baso % (Auto) 0.4 % 06/08/23 12:41 Neut # (Auto) 5.98 K/uL (1.40-6.50) 06/08/23 12:41 Lymph # (Auto) 1.52 K/uL (1.20-3.40) 06/08/23 12:41 [place] # (Auto) 0.41 K/uL (0.11-0.59) 06/08/23 12:41 Eos # (Auto) 0.02 K/uL (0.00-0.50) 06/08/23 12:41 Baso # (Auto) 0.03 K/uL (0.00-0.20) 06/08/23 12:41 Immature Gran # (Auto) 0.06 K/uL (0.01-0.20) 06/08/23 12:41 ESR 27 mm/hr (0-30) 06/08/23 12:41 PT 10.3 Seconds (9.0-12.0) 06/08/23 12:41 INR 0.9 (0.9-1.1) 06/08/23 12:41 Sodium 139 mmol/L (136-145) 06/08/23 12:41 Potassium 3.5 mmol/L (3.5-5.1) 06/08/23 12:41 Chloride 97 mmol/L (98-107) L 06/08/23 12:41 Carbon Dioxide 23 mmol/L (21-32) 06/08/23 12:41 Anion Gap 19 (3-11) H 06/08/23 12:41 BUN 62 mg/dl (6-23) H 06/08/23 12:41 Creatinine 7.24 mg/dl (0.6-1.2) H* 06/08/23 12:41 Est Cr Clr Drug Dosing 7.4 ml/min 06/08/23 12:41 Est GFR ( Amer) 6.5 ml/min 06/08/23 12:41 Est GFR (Non-Af Amer) 5.6 ml/min 06/08/23 12:41 BUN/Creatinine Ratio 8.6 (10-20) L 06/08/23 12:41 Glucose 163 mg/dl (70-99(Fasting)) H 06/08/23 12:41 Lactate 3.1 mmol/L (0.4-2.0) H* 06/08/23 15:27 Calcium 8.8 mg/dl (8.6-10.3) 06/08/23 12:41 Phosphorus 4.9 mg/dl (2.5-4.9) 06/08/23 12:41 Magnesium 1.1 mg/dl (1.7-2.4) L 06/08/23 12:41 Total Bilirubin 0.7 mg/dl (0.2-1.0) 06/08/23 12:41 AST 17 U/L (13-39) 06/08/23 12:41 ALT 13 U/L (7-52) 06/08/23 12:41 Alkaline Phosphatase 52 U/L (34-104) 06/08/23 12:41 Troponin I High Sens 3.9 pg/ml (0-14) 06/08/23 12:41 C-Reactive Protein Cancelled 06/08/23 12:41 Total Protein 7.4 gm/dl (6.0-8.3) 06/08/23 12:41 Albumin 4.4 gm/dl (3.4-5.0) 06/08/23 12:41 Globulin 3.0 gm/dl (2.5-4.0) 06/08/23 12:41 Albumin/Globulin Ratio 1.5 (0.9-2) 06/08/23 12:41 Lipase 107 U/L (11-82) H 06/08/23 12:41 25-OH Vitamin D Total 39.4 ng/ml (30-100) 06/08/23 12:19 Procalcitonin 0.18 ng/ml (0-0.5) 06/08/23 12:19 TSH 0.701 uIu/ml (0.300-4.500) 06/08/23 12: PTH Intact 83.1 pg/ml (12.0-88.0) 06/08/23 15:27 Urine Color Yellow 06/08/23 12:47 Urine Appearance Turbid (Clear) A 06/08/23 12:47 Urine pH 5.0 (4.5-7.5) 06/08/23 12:47 Ur Specific Excel 1.019 (1.000-1.030) 06/08/23 12:47 Urine Protein 3+ (Negative) H 06/08/23 12:47 Urine Glucose (UA) Negative (Negative) 06/08/23 12:47 Urine Ketones Trace (Negative) H 06/08/23 12:47 Urine Blood 2+ (Negative) H 06/08/23 12:47 Urine Nitrite Negative (Negative) 06/08/23 12:47 Urine Bilirubin Negative (Negative) 06/08/23 12:47 Urine Urobilinogen Negative (Negative) 06/08/23 12:47 Ur Leukocyte Esterase 3+ (Negative) H 06/08/23 12:47 Urine WBC (Auto) >30 /hpf (0-5) H 06/08/23 12:47 Urine RBC (Auto) 5-10 /hpf (0-4) H 06/08/23 12:47 U Hyaline Cast (Auto) 5-10 /lpf (0-5) H 06/08/23 12:47 U Epithel Cells (Auto) >30 /lpf (0-5) H 06/08/23 12:47 Urine Bacteria (Auto) 4+ (Negative) H 06/08/23 12:47 Granular Casts 5-10 /lpf (0) H 06/08/23 12:47 Urine Yeast Not Reportable 06/08/23 12:47 Urine Sodium 41 mmol/L 06/08/23 12:47 Urine Potassium 42.9 mmol/L 06/08/23 12:47 Urine Chloride 39 mmol/L 06/08/23 12:47 Urine Opiates Screen Neg (Neg) 06/08/23 12:47 Ur Methadone, Qual Neg (Neg) 06/08/23 12:47 Urine Barbiturates Neg (Neg) 06/08/23 12:47 Ur Phencyclidine (PCP) Neg (Neg) 06/08/23 12:47 U Amphetamin/Meth Scrn Neg (Neg) 06/08/23 12:47 MDMA (Ecstasy) Screen Neg (Neg) 06/08/23 12:47 U Benzodiazepines Scrn Neg (Neg) 06/08/23 12:47 Ur Cocaine Metabolite Neg (Neg) 06/08/23 12:47 U Marijuana (THC) Screen Neg (Neg) 06/08/23 12:47 Ethyl Alcohol mg/dL < 10.0 mg/dl (<10.0) 06/08/23 15:27 SARS-CoV-2, RNA, NAAT NEGATIVE (NEGATIVE) 06/08/23 12:51 Impressions Renal Ultrasound 06/08/23 11:45 US renal/blad retro comp CLINICAL HISTORY: new kidney dysfunction TECHNIQUE: Multiple sonographic real-time images of the kidneys and bladder were obtained. COMPARISON: None available at the time of this dictation. FINDINGS: The right kidney measures 10.8 cm in length, and the left kidney measures 11.6 cm in length. Mild perinephric fluid is seen bilaterally. The right kidney is normal in size, contour, cortical thickness, and echogenicity. No hydronephrosis is identified. No renal lesion is identified. The left kidney is normal in size, contour, cortical thickness and echogenicity. No hydronephrosis is identified. No renal lesion is identified. The bladder is partially distended. No large intraluminal mass is seen. IMPRESSION: Unremarkable examination and in particular no evidence of hydronephrosis. ACT 112: Negative or not required by law. Electronically signed by: Chetan Flynn M.D. 06/08/2023 1:45 PM Chest X-Ray 06/08/23 14:15 SINGLE VIEW CHEST CLINICAL HISTORY: Acute renal insufficiency. FINDINGS: An AP, portable, upright chest radiograph is obtained. No prior studies are available for comparison at the time of dictation. The cardiomediastinal silhouette is unremarkable noting atherosclerotic calcification of the thoracic aorta. The pulmonary vasculature is noncongestive.. The lungs and pleural spaces are clear. No pneumothorax is seen. The skeletal structures are osteopenic. The bony thorax is grossly intact. IMPRESSION: No active disease in the chest. ACT 112: Negative or not required by law. Electronically signed by: Larry Jimenez M.D. 06/08/2023 2:38 PM Abdomen/Pelvis CT 06/08/23 15:07 CT OF THE ABDOMEN AND PELVIS WITHOUT CONTRAST CLINICAL HISTORY: YING with recent weight loss COMPARISON STUDY: Renal ultrasound June 08, 2023. TECHNIQUE: Axial images of the abdomen and pelvis were obtained without IV contrast. Images were reviewed in the axial, sagittal, and coronal planes. Automated exposure control was utilized for the study. A dose lowering technique was utilized adhering to the principles of ALARA. FINDINGS: Lung bases are unremarkable. No pneumatosis, free air or portal venous gas is present. There is no hydronephrosis. No renal, ureteral or bladder calculi are present. Pelvic calcifications represent phleboliths. Evaluation of the remainder of the abdomen and pelvis is suboptimal on this unenhanced exam. Liver, spleen, adrenal glands and pancreas are unremarkable. There is no biliary or pancreatic ductal dilatation. There is no evidence for a bowel obstruction. No abdominal or pelvic lymphadenopathy is present. The appendix is normal. There is no ascites. No suspicious lesions are identified within the visualized skeletal structures. IMPRESSION: 1. No urinary calculi or hydronephrosis. 2. No acute process within the abdomen or pelvis on unenhanced exam. 3. No CT evidence for malignancy within the abdomen or pelvis on unenhanced exam . ACT 112: Negative or not required by law. Electronically signed by: Lj Roberts M.D. 06/08/2023 3:58 PM PG Care Time/CCT Total # of Minutes Spent Total Time Spent with Patient: Total time spent is greater than 50% in coordination of care (as documented) at patient's floor/unit and/or counseling patient: Coding Level of Care Code 27345 IN/OBS CONSULT LVL 5,80M Diagnoses YING (acute kidney injury) N17.9 Hypertension I10 Type 2 diabetes mellitus, with long-term current use of insulin E11.9; Z79.4 Diabetes mellitus complication status: with ophthalmic complications Diabetes mellitus complication detail: with diabetic retinopathy (3) Type 2 diabetes mellitus, with long-term current use of insulin Diabetes mellitus complication status: with ophthalmic complications Diabetes mellitus complication detail: with diabetic retinopathy
[2023-06-08 16:51] LABS: Amphetamines+Metham, Urine Neg (Neg); Barbiturates, Urine Neg (Neg); Benzodiazepine, Urine Neg (Neg); Cocaine, Urine Neg (Neg); MDMA (Ecstacy), Urine Neg (Neg); Methadone, Urine Neg (Neg); Opiate, Urine Neg (Neg); Phencyclidine, Urine Neg (Neg)
[2023-06-08] MEDS ORDERED: PLASMA-LYTE A 1,000 ML IV ONE (16:56)
[2023-06-08] MEDS: MAGNESIUM SULFATE / D5W 1 GM/100 ML BAG IV SCH ×4 (17:22→21:15)
[2023-06-08 17:36] LABS: Creatinine Urine Random 223.7 mg/dl; Protein Creatinine Ratio Urine 1.4 (0-0.2); Total Protein Urine Random 311.3 mg/dl (0-11.9)
[2023-06-08] MEDS: PLASMA-LYTE A 1,000 ML IV SCH ×2 (18:00→19:31)
[2023-06-08 18:14] LABS: Acetaminophen < 3 ug/ml (10-30); Salicylate < 3.0 mg/dl (3.0-30)
[2023-06-08] MEDS ORDERED: ACETAMINOPHEN 325 MG TAB PO PRN (18:14)
[2023-06-08] MEDS: INSULIN ASPART PER UNIT CHARGE SC SCH ×2 (18:59→22:16)
[2023-06-08] MEDS ORDERED: ATORVASTATIN 40 MG TAB PO SCH (21:00)
[2023-06-08] MEDS: HEPARIN SOD 5,000 UNIT/0.5 ML VIAL SQ SCH (21:18)
[2023-06-08] MEDS: LANTUS PER UNIT CHARGE SQ SCH (22:16)
[2023-06-09] MEDS: PLASMA-LYTE A 1,000 ML IV SCH ×2 (05:14→16:36)
--- NOTE | 2023-06-09 06:30 | Electrocardiogram Report ---
Test Reason : Blood Pressure : / mmHG Vent. Rate : 090 BPM Atrial Rate : 090 BPM P-R Int : 124 ms QRS Dur : 074 ms QT Int : 388 ms P-R-T Axes : 060 045 054 degrees QTc Int : 474 ms Normal sinus rhythm Nonspecific ST abnormality Abnormal ECG No previous ECGs available Confirmed by Anthony Cavanaugh ([id number]) on 06/09/2023 6:30:12 AM Referred By: Confirmed By:Anthony Cavanaugh
[2023-06-09 07:24] LABS: Basophils # (auto) 0.04 K/uL (0.00-0.20); Basophils % (auto) 0.5 %; Eosinophils # (auto) 0.04 K/uL (0.00-0.50); Eosinophils % (auto) 0.5 %; Hemoglobin 11.4 g/dl (12.0-16.0); Immature Granulocytes # (auto) 0.03 K/uL (0.01-0.20); Immature Granulocytes % (auto) 0.4 %; Lymphocytes # (auto) 1.23 K/uL (1.20-3.40); Lymphocytes % (auto) 16.6 %; Mean Corpuscular Hemoglobin 30.1 pg (25.0-34.0); Mean Corpuscular Hgb Conc 34.5 g/dL (32.0-36.0); Mean Corpuscular Volume 87.1 fL (80.0-100.0); Mean Platelet Volume 9.4 fL (9.4-12.4); Monocytes # (auto) 0.56 K/uL (0.11-0.59); Monocytes % (auto) 7.6 %; Neutrophils % (auto) 74.4 %; Platelet Count 187 K/uL (130-400); RDW Coefficient of Variation 12.9 % (11.5-14.5); Red Blood Count 3.79 M/uL (4.20-5.40)
[2023-06-09 07:29] LABS: Albumin Globulin Ratio 1.3 (0.9-2); Albumin Level 3.7 gm/dl (3.4-5.0); BUN Creatinine Ratio 8.9 (10-20); Bilirubin,Total 0.5 mg/dl (0.2-1.0); Calcium 7.9 mg/dl (8.6-10.3); Creatinine Clr Calc Pharmacy 8.5 ml/min; Est GFR (African American) 7.6 ml/min; Est GFR (Non-African American) 6.6 ml/min; Globulin 2.8 gm/dl (2.5-4.0); Magnesium 2.4 mg/dl (1.7-2.4); Potassium 3.5 mmol/L (3.5-5.1); Total Protein 6.5 gm/dl (6.0-8.3)
--- NOTE | 2023-06-09 08:03 | Hospitalist Progress Note ---
Date of Service June 09, 2023 Assessment & Plan (1) YING (acute kidney injury): (2) UTI (urinary tract infection): (3) Type 2 diabetes mellitus, with long-term current use of insulin: (4) Hypertension: (5) Hypomagnesemia: Plan #YING: - Cr 7.1 --> 6.32, continue to follow with serial BMP - Baseline Cr of 0.69 in 01/11 - Urine sediment reveals hematuria, pyruria, hyaline and granular casts - Renal US negative - Clinically suspect ATN due to dehydration in the setting of ACEi therapy, concurrent UTI, however, will need to remain vigilant for vasculitis given the urinary findings - Hold lisinopril/Metformin, Semaglutide avoid nephrotoxic agents - Continue gentle IV fluid resuscitation - UTI treatment - CELIO, ANCA, C3/C4, antiGBM Ab, PLA2R ab, hep B/C, SIEP/UIEP - pending - UO 1.3L in 24 hours #UTI: - UA consistent with UTI - Urine cx significant for gram negative bacilli - Blood cx pending - Continue Ceftriaxone #T2DM: - Hold semaglutide - Hold metformin #HTN: - Hold lisinopril due to YING #Hypomagnesemia: - Mg 1.1, increased to 2.4 after repletion - AM magnesium lab Diet: T2DM, renal diet as tolerated VTE PPx: Heparin 5000u b.i.d. Admission and Anticipated Discharge Date Admission Date: June 08, 2023 Supervising Physician Co-Signing Physician Notes Resident Physician Supervision Note: I independently interviewed and examined the patient and verified the carrera his tory and physical, reviewed labs and image studies and agree with resident findings and care plan. Florentin Farmer is a 58-year-old female with PMH of T2DM, HTN, vitamin D deficiency, and dyslipidemia. She presents at the behest of her PCP following outpatient lab work that showed an acute decline in kidney function. Patient evaluated at bedside today, notes that Ozempic dose was increased in December, GI sx did not start until 4-6 weeks ago, but patient has been experiencing progressively worsening early satiety and occasional N/V/D. Notes poor PO intake of food and drink, has continued to produce urine but perhaps urinating less frequently than normal. Currently denies N/V/D. Denies abdominal pain. Review of Systems Review of Systems: All systems reviewed & are unremarkable except as noted in HPI & below Physical Exam Constitutional: WD/WN, vitals as above no acute distress Respiratory: normal respiratory effort, lungs clear to auscultation Cardiovascular: RRR, no murmur, no edema Gastrointestinal (Abdomen): normal bowel sounds, soft, nontender, no hepatosplenomegaly Skin: no rashes, warm and dry Psychiatric: A+Ox3, euthymic affect Results & Data Results & Data Vital Signs (Past 12 Hours) Vital Signs Temp Pulse Resp BP Pulse Ox O2 Del Method 06/09/23 07:07 36.9 C 87 16 117/74 99 Room Air 06/08/23 23:38 37.1 C 89 20 103/66 99 Room Air Laboratory Results Abnormal lab results 06/08/23 06/08/23 06/08/23 Range/Units 12:47 15:27 15:27 RBC (4.20-5.40) M/uL Hgb (12.0-16.0) g/dl Hct (37.0-47.0) % Anion Gap (3-11) BUN (6-23) mg/dl Creatinine (0.6-1.2) mg/dl BUN/Creatinine Ratio (10-20) POC Glucose (70-99) mg/dl Lactate 3.1 H* (0.4-2.0) mmol/L Calcium (8.6-10.3) mg/dl U Random Total Protein 311.3 H (0-11.9) mg/dl Protein/Creatinin Ratio 1.4 H (0-0.2) Salicylates < 3.0 L (3.0-30) mg/dl Acetaminophen < 3 L (10-30) ug/ml 06/08/23 06/08/23 06/08/23 Range/Units 17:33 18:48 22:01 RBC (4.20-5.40) M/uL Hgb (12.0-16.0) g/dl Hct (37.0-47.0) % Anion Gap (3-11) BUN (6-23) mg/dl Creatinine (0.6-1.2) mg/dl BUN/Creatinine Ratio (10-20) POC Glucose 103 H 187 H (70-99) mg/dl Lactate 2.2 H* (0.4-2.0) mmol/L Calcium (8.6-10.3) mg/dl U Random Total Protein (0-11.9) mg/dl Protein/Creatinin Ratio (0-0.2) Salicylates (3.0-30) mg/dl Acetaminophen (10-30) ug/ml 06/09/23 06/09/23 06/09/23 Range/Units 06:30 06:30 11:59 RBC 3.79 L (4.20-5.40) M/uL Hgb 11.4 L (12.0-16.0) g/dl Hct 33.0 L (37.0-47.0) % Anion Gap 14 H (3-11) BUN 56 H (6-23) mg/dl Creatinine 6.32 H* D (0.6-1.2) mg/dl BUN/Creatinine Ratio 8.9 L (10-20) POC Glucose 173 H (70-99) mg/dl Lactate (0.4-2.0) mmol/L Calcium 7.9 L (8.6-10.3) mg/dl U Random Total Protein (0-11.9) mg/dl Protein/Creatinin Ratio (0-0.2) Salicylates (3.0-30) mg/dl Acetaminophen (10-30) ug/ml Diagnostic Findings Renal Ultrasound 06/08/23 11:45 US renal/blad retro comp CLINICAL HISTORY: new kidney dysfunction TECHNIQUE: Multiple sonographic real-time images of the kidneys and bladder were obtained. COMPARISON: None available at the time of this dictation. FINDINGS: The right kidney measures 10.8 cm in length, and the left kidney measures 11.6 cm in length. Mild perinephric fluid is seen bilaterally. The right kidney is normal in size, contour, cortical thickness, and echogenicity. No hydronephrosis is identified. No renal lesion is identified. The left kidney is normal in size, contour, cortical thickness and echogenicity. No hydronephrosis is identified. No renal lesion is identified. The bladder is partially distended. No large intraluminal mass is seen. IMPRESSION: Unremarkable examination and in particular no evidence of hydronephrosis. ACT 112: Negative or not required by law. Electronically signed by: Chetan Flynn M.D. 06/08/2023 1:45 PM Chest X-Ray 06/08/23 14:15 SINGLE VIEW CHEST CLINICAL HISTORY: Acute renal insufficiency. FINDINGS: An AP, portable, upright chest radiograph is obtained. No prior studies are available for comparison at the time of dictation. The cardiomediastinal silhouette is unremarkable noting atherosclerotic calcification of the thoracic aorta. The pulmonary vasculature is noncongestive.. The lungs and pleural spaces are clear. No pneumothorax is seen. The skeletal structures are osteopenic. The bony thorax is grossly intact. IMPRESSION: No active disease in the chest. ACT 112: Negative or not required by law. Electronically signed by: Larry Jimeenz M.D. 06/08/2023 2:38 PM Abdomen/Pelvis CT 06/08/23 15:07 CT OF THE ABDOMEN AND PELVIS WITHOUT CONTRAST CLINICAL HISTORY: YING with recent weight loss COMPARISON STUDY: Renal ultrasound June 08, 2023. TECHNIQUE: Axial images of the abdomen and pelvis were obtained without IV contrast. Images were reviewed in the axial, sagittal, and coronal planes. Auto mated exposure control was utilized for the study. A dose lowering technique was utilized adhering to the principles of ALARA. FINDINGS: Lung bases are unremarkable. No pneumatosis, free air or portal venous gas is present. There is no hydronephrosis. No renal, ureteral or bladder calculi are present. Pelvic calcifications represent phleboliths. Evaluation of the remainder of the abdomen and pelvis is suboptimal on this unenhanced exam. Liver, spleen, adrenal glands and pancreas are unremarkable. There is no biliary or pancreatic ductal dilatation. There is no evidence for a bowel obstruction. No abdominal or pelvic lymphadenopathy is present. The appendix is normal. There is no ascites. No suspicious lesions are identified within the visualized skeletal structures. IMPRESSION: 1. No urinary calculi or hydronephrosis. 2. No acute process within the abdomen or pelvis on unenhanced exam. 3. No CT evidence for malignancy within the abdomen or pelvis on unenhanced exam. ACT 112: Negative or not required by law. Electronically signed by: Lj Roberts M.D. 06/08/2023 3:58 PM Resident Activity Tracking Resident Involvement: Resident Care Provided Care Provided: Adult Hospital Medicine (3) Type 2 diabetes mellitus, with long-term current use of insulin Diabetes mellitus complication detail: with diabetic retinopathy Diabetes mellitus complication status: with ophthalmic complications
--- NOTE | 2023-06-09 08:54 | Nephrology Progress Note ---
Date of Service June 09, 2023 Assessment & Plan (1) YING (acute kidney injury): Plan: * Baseline Cr 0.7 01/11. No interval studies until 06/13 when Cr 7.1 * Renal US reveals structurally normal kidneys without stone or obstruction * Urine sediment reveals hematuria, pyruria, hyaline and granular casts * Urine culture has been ordered, results pending, remains on empiric ceftriaxone * Clinically suspect ATN due to dehydration in the setting of ACEi therapy, however, will need to remain vigilant for vasculitis given the urinary findings * Lisinopril and metformin have been stopped * UO 1.3 L last 24 hours * Creatinine improved from 7.0 to 6.3 * ESR 27 * CELIO, ANCA, C3/C4, antiGBM Ab, PLA2R ab, hep B/C, SIEP/UIEP - pending * Patient is nonoliguric. Cr is mildly improved off ACEi w/ gentle hydration. Volume status and electrolyte balance remain acceptable. Continue supportive care, gentle hydration. Monitor PRP, UO (2) Hypertension: Plan: * Patient admitted w/ relative hypotension * Stop lisinopril due to YING (3) Type 2 diabetes mellitus, with long-term current use of insulin: Plan: * Stop semaglutide * Stop metformin Admission and Anticipated Discharge Date Admission Date: June 08, 2023 Subjective Mrs. Pathak was evaluated in her hospital room this morning. She is tolerating IV hydration without dyspnea or LE swelling. She reports improved UO Review of Systems Constitutional: no fever Eyes: no problem reported Ear, Nose, Mouth, Throat: no problem reported Respiratory: no cough, no dyspnea and no hemoptysis Cardiovascular: no chest pain, no palpitations and no edema Gastrointestinal: + early satiety; no abdominal pain Genitourinary: no dysuria and no hematuria Musculoskeletal: no back pain, no joint pain, no myalgia and no muscle weakness Integumentary: no rash, no lesions, no skin ulcer, no unusual bruising and no alopecia Neurologic: no falls, no dizziness, no headache(s) and no confusion Physical Exam Constitutional: no acute distress Eyes: PERRL, conjunctivae normal, anicteric sclerae ENMT: external ear and nose normal, oropharynx normal Mouth: no oral mucosa l abnormality Neck: trachea midline, no thyromegaly (no cervical lymphadenopathy) Respiratory: normal respiratory effort, lungs clear to auscultation Cardiovascular: Rate/Rhythm: regular rate and regular rhythm Gastrointestinal (Abdomen): Inspection/Auscultation: abdomen normal to inspection and normal bowel sounds; abdomen not distended Percussion/Palpation: abdomen soft; abdomen nontender and no guarding Musculoskeletal: Extremities: no joint enlargement, no cyanosis, no clubbing and no petechiae Skin: + turgor decreased; no rashes, no ulcers and no wound Neurologic: awake; not confused Speech / Cognition: normal speech and normal cognition Psychiatric: Affect: euthymic affect Results & Data Vital Signs (Past 12 Hours) Vital Signs Temp Pulse Resp BP Pulse Ox O2 Del Method 06/09/23 07:07 36.9 C 87 16 117/74 99 Room Air 06/08/23 23:38 37.1 C 89 20 103/66 99 Room Air Laboratory Results Laboratory Tests 06/08/23 06/08/23 06/09/23 12:19 15:27 06:30 WBC 7.40 Hgb 11.4 L Hct 33.0 L Plt Count 187 Sodium Potassium Chloride Carbon Dioxide BUN Creatinine Glucose Albumin 25-OH Vitamin D Total 39.4 PTH Intact 83.1 06/09/23 06:30 WBC Hgb Hct Plt Count Sodium 138 Potassium 3.5 Chloride 100 Carbon Dioxide 24 BUN 56 H Creatinine 6.32 H* D Glucose 88 Albumin 3.7 25-OH Vitamin D Total PTH Intact PG Care Time/CCT Total # of Minutes Spent Total Time Spent with Patient: Total time spent is greater than 50% in coordination of care (as documented) at patient's floor/unit and/or counseling patient: Coding Level of Care Code 95418 SUB INP/OBS CARE 3/50MIN Diagnoses YING (acute kidney injury) N17.9 Hypertension I10 Type 2 diabetes mellitus, with long-term current use of insulin E11.9; Z79.4 Diabetes mellitus complication detail: with diabetic retinopathy Diabetes mellitus complication status: with ophthalmic complications (3) Type 2 diabetes mellitus, with long-term current use of insulin Diabetes mellitus complication detail: with diabetic retinopathy Diabetes mellitus complication status: with ophthalmic complications
[2023-06-09] MEDS: HEPARIN SOD 5,000 UNIT/0.5 ML VIAL SQ SCH ×2 (09:01→20:18)
[2023-06-09] MEDS: INSULIN ASPART PER UNIT CHARGE SC SCH ×4 (09:02→21:22)
[2023-06-09] MEDS: LANTUS PER UNIT CHARGE SQ SCH ×2 (09:06→21:22)
[2023-06-09] MEDS: cefTRIAXone SODIUM 2,000 MG in DEXTROSE 5 % MINI-B 50 ML IV SCH (14:06)
[2023-06-10] MEDS: PLASMA-LYTE A 1,000 ML IV SCH ×3 (02:04→23:11)
[2023-06-10 06:51] LABS: Basophils # (auto) 0.02 K/uL (0.00-0.20); Basophils % (auto) 0.4 %; Eosinophils # (auto) 0.06 K/uL (0.00-0.50); Eosinophils % (auto) 1.2 %; Hematocrit (blood only) 29.3 % (37.0-47.0); Immature Granulocytes # (auto) 0.02 K/uL (0.01-0.20); Immature Granulocytes % (auto) 0.4 %; Lymphocytes # (auto) 1.31 K/uL (1.20-3.40); Lymphocytes % (auto) 26.6 %; Mean Corpuscular Hemoglobin 29.8 pg (25.0-34.0); Mean Corpuscular Hgb Conc 34.1 g/dL (32.0-36.0); Mean Corpuscular Volume 87.2 fL (80.0-100.0); Mean Platelet Volume 9.2 fL (9.4-12.4); Monocytes # (auto) 0.47 K/uL (0.11-0.59); Monocytes % (auto) 9.6 %; Neutrophils # (auto) 3.04 K/uL (1.40-6.50); Neutrophils % (auto) 61.8 %; Platelet Count 155 K/uL (130-400); RDW Coefficient of Variation 13.1 % (11.5-14.5); RDW Standard Deviation 41.7 fL (36.4-46.3); Red Blood Count 3.36 M/uL (4.20-5.40); White Blood Count 4.92 K/ul (4.8-10.8)
--- NOTE | 2023-06-10 07:05 | Hospitalist Progress Note ---
Date of Service June 10, 2023 Assessment & Plan (1) YING (acute kidney injury): (2) UTI (urinary tract infection): (3) Type 2 diabetes mellitus, with long-term current use of insulin: (4) Hypertension: (5) Hypomagnesemia: Plan #YING: - Cr 6.32--> 4.01, continue to follow with serial BMP - Baseline Cr of 0.69 in 01/11 - Urine sediment reveals hematuria, pyuria, hyaline and granular casts - Renal US negative - Clinically suspect ATN due to dehydration in the setting of ACEi therapy, concurrent UTI, - Hold lisinopril/Metformin, Semaglutide avoid nephrotoxic agents - Continue gentle IV fluid resuscitation - UTI treatment - CELIO, ANCA, C3/C4, antiGBM Ab, PLA2R ab, hep B/C, SIEP/UIEP - pending - UO 2.275L in last 24 hours - Nephrology following, recommending hospitalization at least until Cr below 2.0 #UTI: - Final urine cx positive for Klebsiella pneumoniae; bl cx neg. - Continue Ceftriaxone #T2DM: - Hold semaglutide - Hold metformin #HTN: - Hold lisinopril due to YING #Hypomagnesemia: - Mg 1.8 - AM magnesium lab FEN: Plasmalyte 100mL/hour, T2DM, renal diet as tolerated VTE PPx: Heparin 5000u b.i.d. Admission and Anticipated Discharge Date Admission Date: June 08, 2023 Supervising Physician Co-Signing Physician Notes Resident Physician Supervision Note: I independently interviewed and examined the patient and verified the carrera history and physical, reviewed labs and image studies and agree with resident findings and care plan. Florentin Farmer is a 58-year-old female with PMH of T2DM, HTN, vitamin D deficiency, and dyslipidemia. She presents at the behest of her PCP following outpatient lab work that showed an acute decline in kidney function. Patient evaluated at bedside today, notes that her appetite seems to have improved and she is not feeling the early satiety that she had prior to admission. Was able to finish her breakfast this morning. Denies N/V/D, passing gas but no bowel movement. Good urine output without urinary sx. Denies chills. Review of Systems Review of Systems: All systems reviewed & are unremarkable except as noted in HPI & below Physical Exam Constitutional: WD/WN, vitals as above no acute distress Respiratory: normal respiratory effort, lungs clear to auscultation Cardiovascular: RRR, no murmur, no edema Gastrointestinal (Abdomen): normal bowel sounds, soft, nontender, no hepatosplenomegaly Skin: no rashes, warm and dry Psychiatric: A+Ox3, euthymic affect Results & Data Results & Data Vital Signs (Past 12 Hours) Vital Signs Temp Pulse Resp BP Pulse Ox O2 Del Method 06/09/23 20:55 Room Air 06/09/23 20:34 37.3 C 87 18 123/72 100 Room Air Laboratory Results Abnormal lab results 06/09/23 06/09/23 06/10/23 Range/Units 16:32 21:16 06:30 RBC 3.36 L (4.20-5.40) M/uL Hgb 10.0 L (12.0-16.0) g/dl Hct 29.3 L (37.0-47.0) % MPV 9.2 L (9.4-12.4) fL Potassium (3.5-5.1) mmol/L Anion Gap (3-11) BUN (6-23) mg/dl Creatinine (0.6-1.2) mg/dl Glucose (70-99(Fasting)) mg/dl POC Glucose 189 H 281 H (70-99) mg/dl Calcium (8.6-10.3) mg/dl 06/10/23 06/10/23 06/10/23 Range/Units 06:30 07:40 11:42 RBC (4.20-5.40) M/uL Hgb (12.0-16.0) g/dl Hct (37.0-47.0) % MPV (9.4-12.4) fL Potassium 3.2 L (3.5-5.1) mmol/L Anion Gap 13 H (3-11) BUN 40 H (6-23) mg/dl Creatinine 4.01 H D (0.6-1.2) mg/dl Glucose 108 H (70-99(Fasting)) mg/dl POC Glucose 142 H 291 H (70-99) mg/dl Calcium 7.5 L (8.6-10.3) mg/dl Resident Activity Tracking Resident Involvement: Resident Care Provided Care Provided: Adult Hospital Medicine (3) Type 2 diabetes mellitus, with long-term current use of insulin Diabetes mellitus complication detail: with diabetic retinopathy Diabetes mellitus complication status: with ophthalmic complications
[2023-06-10 07:19] LABS: Calcium 7.5 mg/dl (8.6-10.3); Creatinine Clr Calc Pharmacy 13.4 ml/min; Est GFR (African American) 13.2 ml/min; Est GFR (Non-African American) 11.4 ml/min; Magnesium 1.8 mg/dl (1.7-2.4); Potassium 3.2 mmol/L (3.5-5.1)
[2023-06-10] MEDS: HEPARIN SOD 5,000 UNIT/0.5 ML VIAL SQ SCH ×2 (08:59→20:55)
[2023-06-10] MEDS: LANTUS PER UNIT CHARGE SQ SCH ×2 (09:03→20:51)
[2023-06-10] MEDS: INSULIN ASPART PER UNIT CHARGE SC SCH ×4 (09:06→20:51)
--- NOTE | 2023-06-10 10:30 | Nephrology Progress Note ---
Date of Service June 10, 2023 Assessment & Plan (1) YING (acute kidney injury): Plan: * Baseline Cr 0.7 01/11. No interval studies until 06/13 when Cr 7.1 * Renal US reveals structurally normal kidneys without stone or obstruction * Urine sediment reveals hematuria, pyruria, hyaline and granular casts * Urine culture - pansensitive Kebsiella. Patient remains on empiric ceftriaxone * Clinically suspect ATN due to dehydration in the setting of ACEi therapy/UTI * Lisinopril and metformin have been stopped * UO 1375 cc last 24 hours * Creatinine improved from 6.3 to 4.0 * ESR 27 * CELIO, ANCA, C3/C4, antiGBM Ab, PLA2R ab, hep B/C, SIEP/UIEP - pending * Patient is nonoliguric. Cr continues to improve off ACEi/Ozempic w/ gentle hydration. Volume status and electrolyte balance remain acceptable. Continue supportive care, gentle hydration. Monitor PRP, UO. Recommend continued hospitalization until Cr 2.0 or less (2) Hypertension: Plan: * Patient admitted w/ relative hypotension * Stop lisinopril due to YING (3) Type 2 diabetes mellitus, with long-term current use of insulin: Plan: * Stop semaglutide * Stop metformin Admission and Anticipated Discharge Date Admission Date: June 08, 2023 Subjective Mrs. Pathak was evaluated in her hospital room this morning. She is tolerating IV hydration without dyspnea or LE swelling. She reports brisk UO. She voices no new medical concerns Review of Systems Constitutional: no fever Eyes: no problem reported Ear, Nose, Mouth, Throat: no problem reported Respiratory: no cough, no dyspnea and no hemoptysis Cardiovascular: no chest pain, no palpitations and no edema Gastrointestinal: no abdominal pain Genitourinary: no dysuria and no hematuria Musculoskeletal: no back pain, no joint pain, no myalgia and no muscle weakness Integumentary: no rash, no lesions, no skin ulcer, no unusual bruising and no alopecia Neurologic: no falls, no dizziness, no headache(s) and no confusion Physical Exam Constitutional: no acute distress Eyes: PERRL, conjunctivae normal, anicteric sclerae ENMT: external ear and nose normal, oropharynx normal Mouth: no oral mucosal abnormality Neck: trachea midline, no thyromegaly (no cervical lymphadenopathy) Respiratory: normal respiratory effort, lungs clear to auscultation Cardiovascular: Rate/Rhythm: regular rate and regular rhythm Gastrointestinal (Abdomen): Percussion/Palpation: abdomen soft; abdomen nontender and no guarding Musculoskeletal: Extremities: no joint enlargement, no cyanosis, no clubbing and no petechiae Skin: normal turgor; no rashes, no ulcers and no wound Neurologic: awake; not confused Speech / Cognition: normal speech and normal cognition Psychiatric: Affect: euthymic affect Results & Data Vital Signs (Past 12 Hours) Vital Signs Temp Pulse Resp BP Pulse Ox O2 Del Method 06/10/23 07:43 36.9 C 78 17 121/68 96 Room Air Laboratory Results Laboratory Tests 06/08/23 06/09/23 06/10/23 12:41 06:30 06:30 WBC 4.92 Hgb 10.0 L Hct 29.3 L Plt Count 155 Sodium Potassium Chloride Carbon Dioxide BUN Creatinine 7.24 H* 6.32 H* D Glucose Calcium Magnesium 06/10/23 06:30 WBC Hgb Hct Plt Count Sodium 140 Potassium 3.2 L Chloride 100 Carbon Dioxide 27 BUN 40 H Creatinine 4.01 H D Glucose 108 H Calcium 7.5 L Magnesium 1.8 PG Care Time/CCT Total # of Minutes Spent Total Time Spent with Patient: Total time spent is greater than 50% in coordination of care (as documented) at patient's floor/unit and/or counseling patient: Coding Level of Care Code 50635 SUB INP/OBS CARE 3/50MIN Diagnoses YING (acute kidney injury) N17.9 Hypertension I10 Type 2 diabetes mellitus, with long-term current use of insulin E11.9; Z79.4 Diabetes mellitus complication status: with ophthalmic complications Diabetes mellitus complication detail: with diabetic retinopathy (3) Type 2 diabetes mellitus, with long-term current use of insulin Diabetes mellitus complication status: with ophthalmic complications Diabetes mellitus complication detail: with diabetic retinopathy
[2023-06-10 14:02] LABS: Anti Nuclear Antibody Screen POSITIVE (NEGATIVE)
[2023-06-10] MEDS: cefTRIAXone SODIUM 2,000 MG in DEXTROSE 5 % MINI-B 50 ML IV SCH (15:15)
[2023-06-10] MEDS ORDERED: POTASSIUM CHLORIDE CRTAB 20 MEQ TABCR PO STA (15:40)
--- NOTE | 2023-06-11 06:31 | Hospitalist Progress Note ---
Date of Service June 11, 2023 Assessment & Plan (1) YING (acute kidney injury): (2) UTI (urinary tract infection): (3) Type 2 diabetes mellitus, with long-term current use of insulin: (4) Hypertension: (5) Hypomagnesemia: Plan #YING: - Cr 4.01 --> 2.23, continue to follow with serial BMP - Baseline Cr of 0.69 in 01/11 - Urine sediment reveals hematuria, pyuria, hyaline and granular casts - Renal US negative - Clinically suspect ATN due to dehydration in the setting of ACEi therapy, concurrent UTI, - Hold lisinopril/Metformin, Semaglutide avoid nephrotoxic agents - Continue gentle IV fluid resuscitation - UTI treatment - CELIO positive - ANCA, C3/C4, antiGBM Ab, PLA2R ab, hep B/C, SIEP/UIEP - pending - UO 1200mL in last 24 hours - Nephrology following, recommending hospitalization at least until Cr below 2.0 #UTI: - Final urine cx positive for Klebsiella pneumoniae; bl cx neg. - Continue Ceftriaxone #T2DM: - Hold semaglutide - Hold metformin #HTN: - Hold lisinopril due to YING #Hypomagnesemia: - Mg 1.5, magnesium repleted - AM magnesium lab FEN: Plasmalyte 100mL/hour, Potassium and Magnesium repletion, T2DM, renal diet as tolerated VTE PPx: Heparin 5000u b.i.d. Admission and Anticipated Discharge Date Admission Date: June 08, 2023 Florentin Farmer is a 58-year-old female with PMH of T2DM, HTN, vitamin D deficiency, and dyslipidemia. She presents at the behest of her PCP following outpatient lab work that showed an acute decline in kidney function. Patient evaluated at bedside today, notes that her appetite seems to have improved and she is not feeling the early satiety that she had prior to admission. Was able to finish her breakfast this morning. Denies N/V/D, passing gas but no bowel movement. Good urine output without urinary sx. Denies chills. Physical Exam Constitutional: WD/WN, vitals as above no acute distress Respiratory: normal respiratory effort, lungs clear to auscultation Cardiovascular: RRR, no murmur, no edema Gastrointestinal (Abdomen): normal bowel sounds, soft, nontender, no h epatosplenomegaly Skin: no rashes, warm and dry Psychiatric: A+Ox3, euthymic affect Results & Data Results & Data Vital Signs (Past 12 Hours) Vital Signs Temp Pulse Resp BP Pulse Ox O2 Del Method 06/10/23 23:31 36.9 C 70 16 117/72 96 Room Air (3) Type 2 diabetes mellitus, with long-term current use of insulin Diabetes mellitus complication detail: with diabetic retinopathy Diabetes mellitus complication status: with ophthalmic complications
[2023-06-11 06:37] LABS: Basophils # (auto) 0.03 K/uL (0.00-0.20); Basophils % (auto) 0.6 %; Eosinophils # (auto) 0.15 K/uL (0.00-0.50); Eosinophils % (auto) 3.1 %; Hematocrit (blood only) 28.6 % (37.0-47.0); Hemoglobin 9.8 g/dl (12.0-16.0); Immature Granulocytes # (auto) 0.02 K/uL (0.01-0.20); Immature Granulocytes % (auto) 0.4 %; Lymphocytes # (auto) 1.51 K/uL (1.20-3.40); Lymphocytes % (auto) 31.2 %; Mean Corpuscular Hemoglobin 29.6 pg (25.0-34.0); Mean Corpuscular Hgb Conc 34.3 g/dL (32.0-36.0); Mean Corpuscular Volume 86.4 fL (80.0-100.0); Mean Platelet Volume 9.2 fL (9.4-12.4); Monocytes # (auto) 0.56 K/uL (0.11-0.59); Monocytes % (auto) 11.6 %; Neutrophils # (auto) 2.57 K/uL (1.40-6.50); Neutrophils % (auto) 53.1 %; Platelet Count 158 K/uL (130-400); RDW Standard Deviation 41.3 fL (36.4-46.3); Red Blood Count 3.31 M/uL (4.20-5.40); White Blood Count 4.84 K/ul (4.8-10.8)
[2023-06-11 07:02] LABS: Calcium 7.2 mg/dl (8.6-10.3); Creatinine Clr Calc Pharmacy 24.1 ml/min; Est GFR (African American) 26.9 ml/min; Est GFR (Non-African American) 23.2 ml/min; Magnesium 1.5 mg/dl (1.7-2.4); Potassium 3.2 mmol/L (3.5-5.1)
[2023-06-11] MEDS: INSULIN ASPART PER UNIT CHARGE SC SCH ×2 (08:05→12:57)
[2023-06-11] MEDS: HEPARIN SOD 5,000 UNIT/0.5 ML VIAL SQ SCH (08:06)
[2023-06-11] MEDS: PLASMA-LYTE A 1,000 ML IV SCH (09:06)
[2023-06-11] MEDS: LANTUS PER UNIT CHARGE SQ SCH (09:21)
[2023-06-11] MEDS ORDERED: POTASSIUM CHLORIDE CRTAB 20 MEQ TABCR PO STA (10:38)
[2023-06-11] MEDS ORDERED: MAGNESIUM SULFATE / D5W 1 GM/100 ML BAG IV SCH (10:45)
--- NOTE | 2023-06-11 12:10 | Nephrology Progress Note ---
Date of Service June 11, 2023 Assessment & Plan (1) YING (acute kidney injury): (2) Type 2 diabetes mellitus, with long-term current use of insulin: (3) Hypomagnesemia: (4) Hypertension: Plan 58-year-old female who baseline decent renal function, admitted with YING thought to be secondary to volume depletion, creatinine was 7.0 but rapidly improved and down to 2.2 this morning. UA, renal imaging was unremarkable. Clinically otherwise asymptomatic, electrolytes, blood pressure, volume status acceptable. -- Okay to be discharged with close outpatient lab monitoring, expect renal function to continue to improve, recommend checking lab Tuesday and if renal function does not improve as expected, will consider nephrology follow-up -- Discussed about the importance of keeping well-hydrated, avoiding NSAIDs regularly. Admission and Anticipated Discharge Date Admission Date: June 08, 2023 Florentin Farmer was seen and evaluated this morning. Overall she has been feeling well, appetite improved. Renal function continues to improve rapidly, creatinine down to 2.2, electrolyte acceptable. Review of Systems Review of Systems: Review of system was otherwise unremarkable. Physical Exam Constitutional: WD/WN, vitals as above no acute distress Eyes: + anicteric sclerae Neck: normal visual inspection Respiratory: Auscultation: lungs clear to auscultation bilaterally Cardiovascular: RRR, no murmur, no edema Skin: no rashes, warm and dry Neurologic: no focal motor deficits Psychiatric: Orientation: alert and oriented x 3 Results & Data Vital Signs (Past 12 Hours) Vital Signs Temp Pulse Resp BP Pulse Ox O2 Del Method 06/11/23 07:45 36.7 C 86 18 120/72 98 Room Air PG Care Time/CCT Total # of Minutes Spent Total Time Spent with Patient: Total time spent is greater than 50% in coordination of care (as documented) at patient's floor/unit and/or counseling patient: Coding Level of Care Code 49118 SUB INP/OBS CARE 2/35MIN Diagnoses YING (acute kidney injury) N17.9 Type 2 diabetes mellitus, with long-term current use of insulin E11.9; Z79.4 Diabetes mellitus complication status: with ophthalmic complications Diabetes mellitus complication detail: with diabetic retinopathy Hypomagnesemia E83.42 Hypertension I10 (2) Type 2 diabetes mellitus, with long-term current use of insulin Diabetes mellitus complication status: with ophthalmic complications Diabetes mellitus complication detail: with diabetic retinopathy
--- NOTE | 2023-06-11 13:43 | Discharge Summary ---
Date of Service June 11, 2023 Admission HPI Per Admitting Provider Marleny is a 58-year-old female with PMH of T2DM, HTN, vitamin D deficiency, and dyslipidemia. She presents at the behest of her PCP following outpatient lab work that showed an acute decline in kidney function. Creatinine at 7.1, BUN 62, and eGFR 5.6ml/min on arrival. Patient denies any prior renal history. She further denies any pain at present. She notes decreased urinary output over the past 3 weeks, as well as nausea, intermittent vomiting, and intermittent diarrhea, which she attributes to her Ozempic. Patient says she has not been eating or drinking much over the last several weeks, and that even the thought of food makes her nauseous. Patient increased her Ozempic in December 2022 from 1 --> 2 mg/dose; she reports that she has been on it for the past couple years, and has slowly increased from 0.25 --> 2 mg/dose. Her PCP told her to stop taking Ozempic 3 weeks ago when symptoms started. No other changes in medication. Patient denies recent NSAID or antibiotic use over the past few months. No recent infections. No recent surgeries/hospitalizations. No hx of GI/ surgeries aside from 36y ago. No PMH of kidney stones. Recent weight loss on Ozempic of 5kg since December 2022; also, since 05/2020, wgt loss of 85.8kg --> 63.9kg. Patient denies alcohol, tobacco, and recreational drug use. Patient denies physical trauma to the abdomen, pelvis, or back. She took all of her regular morning medications. Vitals stable on arrival. ED course: NSS 1000 mL, Rocephin 2000 mg ROS: Patient endorses recent weight loss, intermittent N/V/D, intermittent burning with urination, and urinary urgency. Patient denies fever, chills, sweats, CP, SOB, abdominal pain, LBP, dysuria, blood in the urine/stool, saddle anesthesia, or numbness/tingling/pain in the legs. Please see Dr. Glenroy Raimrez's attestation for additional changes to treatment plan Admission Exam Per Admitting Provider General: patient appears in no acute distress; anxious; appears stated age; well-nourished; cooperative HEENT: normocephalic, atraumatic; no scleral icterus; PERRLA w/ EOMs intact; moist mucus membrane; trachea midline; vision and hearing grossly intact Skin: warm, dry without signs of tenting; no cyanosis; no rashes, bruising, or lesions; no bruising on the abdomen or back Cardiac: RRR; no new murmurs noted Pulm: no acute respiratory distress; symmetrical chest expansion; clear breath sounds across all lung adkins without adventitious sounds Abdominal: Soft, nontender to palpation; BS present; no ascites; no distention; negative CVA tenderness MSK: no tics or fasciculations; no edema noted in the LEs b/l; pulses intact and symmetrical at radial, DP, and PT Neuro: A&Ox3; no tremors; no focal defects; sensation grossly intact in the upper and lower extremities; patient demonstrates the ability to wiggle toes Principal Diagnosis YING Discharge Exam Constitutional WD/WN, vitals as above Respiratory normal respiratory effort, lungs clear to auscultation Cardiovascular RRR, no murmur, no edema Gastrointestinal (Abdomen) normal bowel sounds, soft, nontender, no hepatosplenomegaly Psychiatric A+Ox3, euthymic affect Discharge Data Allergies Allergy/AdvReac Type Severity Reaction Status Date / Time No Known Drug Allergies Allergy Unknown . Verified 06/08/23 08:38 apple AdvReac Unknown Swelling Verified 06/08/23 14:07 of Lip/Tongue/Throat mejia AdvReac Unknown Swelling Verified 06/08/23 14:07 of Lip/Tongue/Throat Consultations 06/08/23 13:53 Consult Nephrology Routine 06/08/23 13:55 ED Decision to Admit Stat Ordered Studies 06/08/23 11:45 US Renal Bladder [US renal/blad retro comp] Stat 06/08/23 15:07 CT abd pelvis wo con Urgent Hospital Course (1) YING (acute kidney injury): (2) UTI (urinary tract infection): (3) Type 2 diabetes mellitus, with long-term current use of insulin: (4) Hypertension: (5) Hypomagnesemia: Jaden Farmer is a 58-year-old female with PMH of T2DM, HTN, vitamin D deficiency, and dyslipidemia who presented with YING noted on review of outpatient labs. #YING: - ATN sec to extended period of poor oral intake - likely from increased dose of ozempic and concurrent uti in the setting of ACEi therapy - Cr on admission was 7.2, Baseline Cr of 0.69 in 01/11 - Renal US negative - Held lisinopril/Metformin, Semaglutide - Received IV fluid resuscitation and IV antibiotics for UTI treatment - Vasculitis labs were sent initially though less likely source of YING. CELIO positive; ANCA, C3/C4, antiGBM Ab, PLA2R ab, hep B/C, SIEP/UIEP - pending at time of discharge - Creatinine 2.2 on day of discharge. To have BMP drawn Tuesday and close follow up with PCP #UTI: - Final urine cx positive for Klebsiella pneumoniae; bl cx neg. - Treated with Ceftriaxone in hospital, discharged with 3-day course of Cephalexin #T2DM: - Hold semaglutide - Hold metformin - Meds held at discharge, defer to primary care provider to determine when/if appropriate to resume #HTN: - Hold lisinopril due to YING - as above Total Time Total Time Spent Total Time Spent (In Minutes): see attending attestation Discharge Plan Discharge Items Patient Disposition: Home - Self-Care Reason For Visit: YING, ABNORMAL OUTPATIENT LABS Discharge Diagnosis: YING Activity: Resume your previous activity Non-emergency contact: Primary Care Provider Call non-emergency contact if: you have any medication questions and your symptoms worsen Follow-up/Referrals: Sandra Herrera MD [Primary Care Provider] - Diet: Carb Consistent or DM2 Addtl Attending Provider Instructions: You were admitted to the hospital for an acute kidney injury, which is essentially decreased kidney function most likely due to dehydration in your case. You were treated with IV fluids and monitored to make sure your labs were improving. Nephrology ordered several other tests which have not resulted yet. Your primary care provider will be able to follow for when these results are available. You were also started on treatment with antibiotics for a urinary tract infection. Oral antibiotics have been sent to your pharmacy, please take them as specified below. A discharge summary will be sent to your primary care physician to ensure continuity of care. Please bring this discharge summary with you to your next office appointment so that your provider can review it at that time. Medications: Your medication list has been reviewed and reconciled upon discharge to ensure accuracy and continuity of care. An updated list of all your medications is included with your hospital discharge paperwork. Please review this list closely and make note of any changes to your medications. - During your hospital stay, we temporarily held you Metformin, Lisinopril, and Semaglutide. Please DO NOT take these medications until you follow up with your primary care provider, who can help determine if/when these medications can be restarted. - A prescription for Cephalexin has been sent to your pharmacy. This is an antibiotic to treat your urinary tract infection. Please take this medication twice per day for 3 more days starting this evening. Follow up appointments: - Your labs are trending in the right direction but it is very important that you have your labs drawn again on Tuesday. An order has been placed for your to have labs drawn, please have this done at a [facility] on Tuesday. This is to ensure that your creatinine value continues to decrease. - Make a follow up appointment with your PCP for this coming week, ideally as soon as possible. It is very important that you follow up with them shortly after discharge from the hospital. At this appointment, your primary care provider can help decide if your medications can be restarted. Based on your labs, they can also help determine whether you might benefit from a referral to outpatient nephrology. - Keep all of your follow up appointments as already scheduled. If you cannot make an appointment, notify your provider. CONTACT YOUR PRIMARY CARE PROVIDER if you experience any of the following: - Poor urine output - Difficulty following your treatment plan - Difficulty taking any of your medications CALL 911 OR GO TO THE EMERGENCY DEPARTMENT if you experience any of the following: - Sudden, severe abdominal pain or nausea/vomiting - Severe chest pain or chest pain that radiates to your jaw or arm - Sudden, severe shortness of breath or difficulty breathing Pending Studies at Discharge: No Stand-Alone Forms: My [facility], Smoking Cessation Medications and DC Order Prescriptions: New cephalexin 500 mg capsule 500 mg PO BID 3 Days Qty: 6 0RF Continued Novolin N FlexPen 100 unit/mL (3 mL) insulin pen 5 unit SQ HS Qty: 45 1RF Rx Instructions: Pt states that she hasn't needed to use this since she started ozempic, but she still has it just in case multivitamin Tablet 1 tab PO QAM cholecalciferol (vitamin D3) 50 mcg (2,000 unit) capsule 2,000 unit PO QAM (DME) pen needle, diabetic [BD Ultra-Fine Micro Pen Needle] 32 gauge x 1/4" needle See Rx Instructions .ROUTE .MEDSUPPLY Qty: 50 Rx Instructions: As directed atorvastatin 80 mg tablet 80 mg PO HS glipizide 10 mg tablet 0 mg PO BID Rx Instructions: 06/07/23 - 10mg by mouth twice daily. Starting 06/09/23 - Pt will begin taking 5mg by mouth twice daily pioglitazone 45 mg tablet 45 mg PO QAM Held semaglutide 2 mg/dose (8 mg/3 mL) pen injector 2 mg subcut WK 30 Days Qty: 9 3RF Hold Instructions: N/V, poor PO Rx Instructions: Tuesday lisinopril 20 mg tablet 20 mg PO QAM Hold Instructions: Resume on 06/25/23. Hold until you discuss with your PCP metformin 1,000 mg tablet 1,000 mg PO BID Hold Instructions: Resume on 06/25/23. Hold until you discuss with your PCP Discharge Orders: Discharge Order (Routine); Ordered 06/11/23 Ordered By: Abdifatah James Admission Data Admit Date/Time: 06/08/23 15:06 Attending Provider: Radha Santillan Admit Provider: Glenroy Ramirez Primary Care Provider: Sandra Herrera Other Providers: Shaun Jimenez ; Glenroy Ramirez Other Interventions: Discharge Summary Assessment (RN) Last Done: 06/11/23 13:09 Supervising Physician Co-Signing Physician Notes Resident Physician Supervision Note: I independently interviewed and examined the patient and verified the carrera history and physical, reviewed labs and image studies and agree with resident findings and care plan. Resident Activity Tracking Resident Involvement: Resident Care Provided Care Provided: Adult Hospital Medicine
[2023-06-13 08:27] LABS: ANA Pattern Cytoplasmic
== END 2023-06-11 14:20 | disposition home or self-care (01) | DRG 683 ==
LOC: ED 11:35 → SUATTDRO 15:06 → 3E 15:06